=== PATIENT | female | born 1945 | race Caucasian/White ===

== ENCOUNTER → 2016-05-27 | Outpatient (CLI) | payer OTHER ==
[~2016-05-27] MED LIST: DILT-121 PO; HYZ/10015 PO
[2016-05-27 11:09] LABS: BLOOD UREA NITROGEN 15 mg/dl (7-18); BUN/CREATININE RATIO 16.6 (10-20); CALCIUM 9.1 mg/dl (8.5-10.1); CARBON DIOXIDE 28 mmol/L (21-32); CHLORIDE 106 mmol/L (98-107); CREATININE 0.92 mg/dl (0.60-1.20); GLUCOSE 94 mg/dl (70-99); POTASSIUM 3.8 mmol/L (3.5-5.1); SODIUM 142 mmol/L (136-145)
[2016-05-27 11:12] LABS: CHOLESTEROL 205 mg/dl (0-200); CHOLESTEROL/HDL RATIO 2.8; HDL CHOLESTEROL 72 mg/dl; LDL CHOLESTEROL CALCULATED 109 mg/dl; TRIGLYCERIDES 122 mg/dl (0-150); VERY LOW DENSITY LIPOPROT CALC 24 mg/dl
[2016-05-27 11:43] LABS: ESTIMATED AVERAGE GLUCOSE 128 mg/dl; HA1C FLAG Normal (Normal)
--- NOTE | 2016-06-03 08:50 | CODING QUERY MEDICAL NECESSITY ---
SUPPORTING DIAGNOSIS NEEDED A supporting diagnosis is required for the test/procedure performed on this patient in order for us to be reimbursed by the patient's insurance. Please provide a supporting diagnosis for the following test/procedure listed below next to the test name along with your signature. *If there is no additional diagnosis for this patient that would support the following test/procedure please document that below next to the test/procedure. Test(s)/Procedure(s) that require a supporting diagnosis: * GLYCATED HEMOGLOBIN DIAGNOSIS: * DOS: 05/27/16 Provider Signature: Date: Thank you [facility] Once completed, please kindly fax back to [phone] For questions please call [phone]
== END | disposition home or self-care (01) ==
LOC: C.LABBC 08:13
PROVIDERS: ATTEND Family Medicine
DX: I10 Essential (primary) hypertension (principal); E78.00 Pure hypercholesterolemia, unspecified; R73.03 Prediabetes

== ENCOUNTER → 2016-11-14 | Outpatient (CLI) | payer OTHER ==
--- NOTE | 2016-11-14 15:24 | DIAGNOSTIC IMAGING REPORT ---
LEFT HIP UNILATERAL 2 VIEWS CLINICAL HISTORY: Left hip pain. COMPARISON STUDY: None. FINDINGS: No fracture or dislocation within the left hip. The visualized pelvic bones are intact. Soft tissues are within normal limits. Cartilage spaces are maintained for age. IMPRESSION: No fracture or dislocation within the left hip. Electronically signed by: Giovanni Bellamy M.D. 11/14/2016 3:22 PM Dictated Date/Time: 11/14/2016 3:21 PM
--- NOTE | 2016-11-14 15:30 | DIAGNOSTIC IMAGING REPORT ---
L-SPINE MIN 4 VIEWS ROUTINE CLINICAL HISTORY: 71 years-old Female presenting with osteopenia. TECHNIQUE: Frontal, bilateral oblique, and lateral views of the lumbar spine with coned in lateral view of the lumbosacral junction were obtained. COMPARISON: None. FINDINGS: Normal lumbar lordosis. Vertebral body heights maintained. Intervertebral disc height loss at L5-S1 with vacuum disc phenomenon. No evidence of a compression deformity. No radiographic evidence of acute fracture or subluxation. Evaluation of the neural foramina slightly limited due to positioning and mild scoliotic curvature of the lumbar spine. Nonobstructive bowel gas pattern. IMPRESSION: Degenerative changes at L5-S1. No evidence of a compression deformity. Electronically signed by: Akhil Mack M.D. 11/14/2016 3:29 PM Dictated Date/Time: 11/14/2016 3:27 PM
== END | disposition home or self-care (01) ==
LOC: C.RADBC 14:42
PROVIDERS: ATTEND Family Medicine Adult Medicine
DX: M25.552 Pain in left hip (principal); M85.88 Other specified disorders of bone density and structure, other site; M51.37 Other intervertebral disc degeneration, lumbosacral region

== ENCOUNTER 2016-11-25 07:37 | Inpatient (IN) | payer OTHER ==
[~2016-11-25] VITALS: Ht 160 cm; Wt 81.5 kg
[2016-11-25] MEDS ORDERED: ONDANSETRON INJ 2 MG/ML 2 ML VIAL IV STA (08:29)
[2016-11-25] MEDS ORDERED: SODIUM CHLORIDE 0.9% 1000ML 1,000 ML IV STA (08:29)
[2016-11-25 08:42] LABS: BASO % 0.1 %; BASO ABS # 0.01 K/uL (0-0.2); COMPLETE YES; HEMATOCRIT 43.2 % (37-47); IG% 0.3 %; LYMPH % 6.4 %; LYMPH ABS # 1.01 K/uL (1.2-3.4); MEAN CELL VOLUME 81.7 fL (80-100); MEAN CORPUSCULAR HEMOGLOBIN 30.2 pg (25-34); MEAN PLATELET VOLUME 10.3 fL (7.4-10.4); MONO % 3.8 %; NEUT % 89.4 %; PLATELET COUNT 464 K/uL (130-400); RED BLOOD COUNT 5.29 M/uL (4.2-5.4); WHITE BLOOD COUNT 15.81 K/uL (4.8-10.8)
[2016-11-25 08:48] LABS: ALT/SGPT 21 U/L (12-78); BLOOD UREA NITROGEN 27 mg/dl (7-18); BUN/CREATININE RATIO 26.5 (10-20); CALCIUM 10.7 mg/dl (8.5-10.1); CARBON DIOXIDE 23 mmol/L (21-32); CHLORIDE 99 mmol/L (98-107); GLUCOSE 196 mg/dl (70-99); SODIUM 134 mmol/L (136-145)
[2016-11-25 08:51] LABS: ALKALINE PHOSPHATASE 106 U/L (45-117); AST/SGOT 16 U/L (15-37)
[2016-11-25] MEDS ORDERED: DILT-121 PO (09:21)
[2016-11-25] MEDS ORDERED: HYZ/10015 PO (09:21)
--- NOTE | 2016-11-25 09:23 | DIAGNOSTIC IMAGING REPORT ---
CHEST AND ABDOMEN 2 VIEWS HISTORY: Nausea. Vomiting. COMPARISON: None. FINDINGS: Moderate to large hiatus hernia. The lungs are clear. No pleural effusions. No pneumothorax. Multiple dilated loops of small bowel seen throughout the abdomen measuring up to 4.9 cm. These demonstrate small fluid levels. This is consistent with a small bowel obstruction. No pneumoperitoneum. No pneumatosis. Calcifications in the deep pelvis likely represent phleboliths. IMPRESSION: Multiple distended loops of small bowel consistent with a small bowel obstruction. Electronically signed by: Giovanni Bellamy M.D. 11/25/2016 9:21 AM Dictated Date/Time: 11/25/2016 9:15 AM
--- NOTE | 2016-11-25 09:47 | EMERGENCY ROOM VISIT NOTE ---
ED Visit Note First contact with patient: 07:56 I have personally seen and evaluated the patient with the physician mechanic assistant. I agree with the diagnostic/management decisions and have personally been involved in these decisions and agree with the diagnosis.
[2016-11-25 09:57] VITALS: O2SAT 97; Ht 160 cm; Wt 81.5 kg
[2016-11-25] MEDS ORDERED: ACETAMINOPHEN 325 MG TAB PO PRN (10:30)
[2016-11-25] MEDS ORDERED: ONDANSETRON INJ 2 MG/ML 2 ML VIAL IV PRN (10:30)
[2016-11-25] MEDS ORDERED: MAGNESIUM HYDROXIDE SUSP 30 ML UDC PO PRN (10:30)
[2016-11-25] MEDS ORDERED: ALUMINUM/MAGNESIUM/SIMETH (MAALOX MAX) 30 ML UDC PO PRN (10:30)
[2016-11-25] MEDS ORDERED: MoRPHine SULFATE 2 MG/ML CARP IV PRN ×2 (10:30)
--- NOTE | 2016-11-25 11:14 | History and Physical ---
History & Physical Date & Time of Service: Nov 25, 2016 at 10:46 Chief Complaint: Stomach Pain Primary Care Physician: Carrie Pandya MD History of Present Illness Source: patient Ms. Paniagua is a 71 y/o female with PMHx of HTN, HLD, Pre-DM, and Diverticulosis who presents to the ED c/o vomiting since Thursday. Last emesis was this AM but denies N/V on admission. Also reporting a burning sensation from the stomach that extends into the throat. She denies overt abdominal pain. She denies H/O GERD or frequent reflux. She denies ETOH consumption or chronic NSAID use. Last BM was Thursday but reporting it was small and not a normal amount for her but is unable to recall the last normal BM. She denies melena/ hematochezia. She denies passing flatus. In September 2016, she did have one episode of BRBPR and declined colonoscopy at that time when seen by PCP. Last colonoscopy was [address] Cannon which only confirmed diverticulosis. She did attempt to eat yesterday but only had a small piece of toast and a small amount of scrambled eggs. Currently reports have no appetite for food. She has no H/O abdominal surgeries or C-sections. In the ED, she is afebrile. Presence of leukocytosis at 15.81. Abd XR with multiple distended loops of small bowel consistent with SBO. Minimal to no gas is visualized in the cecum/rectum with is concerning for complete obstruction. She is not anemic on labs with H&H 16/43.2. She is hypokalemic at 3.0. She will be admitted to Med/Surg for SBO. Past Medical/Surgical History 1. HTN 2. HLD 3. Pre-DM 4. Diverticulosis 5. S/P Tonsillectomy/Adenoidectomy Family History Myocardial Infarction MOTHER Ulcerative Colitis DAUGHTER Social History Smoking Status: Never Smoker Drug Use: none Marital Status: Housing status: lives with family Multi-Drug Resistant Organisms History of MDRO: No Allergies Coded Allergies: No Known Allergies (Unverified , 11/25/16) Home Medications Scheduled Diltiazem Hcl Ext Rel (Tiazac), 420 MG PO DAILY Hctz/Losartan (Hyzaar 25MG/100MG), 1 TAB PO DAILY Review of Systems Constitutional: No fever, No chills, No weakness, No fatigue ENT: No nasal symptoms, No sore throat, No trouble swallowing Respiratory: No cough, No shortness of breath Cardiovascular: No chest pain, No palpitations Abdomen: + nausea, + vomiting, No pain, No diarrhea, No constipation, No GI bleeding Musculoskeletal: No swelling, No calf pain Genitourinary - Female: No dysuria Hematologic / Lymphatic: No abnormal bleeding/bruising, No clotting problems Integumentary: No rash Physical Exam Vital Signs Date Time Temp Pulse Resp B/P (MAP) Pulse Ox O2 Delivery O2 Flow Rate FiO2 11/25/16 07:50 36.8 92 20 158/89 97 Room Air General Appearance: WD/WN, no apparent distress Head: normocephalic, atraumatic Eyes: sclerae normal ENT: hearing grossly normal Neck: supple, no JVD, trachea midline Respiratory/Chest: lungs clear, normal breath sounds, no respiratory distress, no accessory muscle use Cardiovascular: regular rate, rhythm, no gallop, no murmur Abdomen/GI: non tender, soft, + abnormal bowel sounds (high pitched BS in LUQ; normoactive BS in RUQ but hypoactive in lower quadrants), + distended (tympanic on percussion of upper quadrants) Extremities/Musculoskelatal: no calf tenderness, no pedal edema Neurologic/Psych: alert, oriented x 3 Skin: normal color, warm/dry Diagnostics Laboratory Results Results Past 24 Hours Test 11/25/16 08:00 11/25/16 08:39 Range/Units White Blood Count 15.81 4.8-10.8 K/uL Red Blood Count 5.29 4.2-5.4 M/uL Hemoglobin 16.0 12.0-16.0 g/dL Hematocrit 43.2 37-47 % Mean Corpuscular Volume 81.7 80-100 fL Mean Corpuscular Hemoglobin 30.2 25-34 pg Mean Corpuscular Hemoglobin Concent 37.0 32-36 g/dl Platelet Count 464 130-400 K/uL Mean Platelet Volume 10.3 7.4-10.4 fL Neutrophils (%) (Auto) 89.4 % Lymphocytes (%) (Auto) 6.4 % Monocytes (%) (Auto) 3.8 % Eosinophils (%) (Auto) 0.0 % Basophils (%) (Auto) 0.1 % Neutrophils # (Auto) 14.14 1.4-6.5 K/uL Lymphocytes # (Auto) 1.01 1.2-3.4 K/uL Monocytes # (Auto) 0.60 0.11-0.59 K/uL Eosinophils # (Auto) 0.00 0-0.5 K/uL Basophils # (Auto) 0.01 0-0.2 K/uL RDW Standard Deviation 40.4 36.4-46.3 fL RDW Coefficient of Variation 13.5 11.5-14.5 % Immature Granulocyte % (Auto) 0.3 % Immature Granulocyte # (Auto) 0.05 0.00-0.02 K/uL Sodium Level 134 136-145 mmol/L Potassium Level 3.0 3.5-5.1 mmol/L Chloride Level 99 98-107 mmol/L Carbon Dioxide Level 23 21-32 mmol/L Anion Gap 12.0 3-11 mmol/L Blood Urea Nitrogen 27 7-18 mg/dl Creatinine 1.00 0.60-1.20 mg/dl Estimated GFR () 65.6 Estimated GFR (Non- 56.6 BUN/Creatinine Ratio 26.5 10-20 Random Glucose 196 70-99 mg/dl Calcium Level 10.7 8.5-10.1 mg/dl Total Bilirubin 0.5 0.2-1 mg/dl Direct Bilirubin 0.2 0-0.2 mg/dl Aspartate Amino Transf (AST/SGOT) 16 15-37 U/L Alanine Aminotransferase (ALT/SGPT) 21 12-78 U/L Alkaline Phosphatase 106 45-117 U/L Total Protein 8.2 6.4-8.2 gm/dl Albumin 4.2 3.4-5.0 gm/dl Lipase 126 73-393 U/L Bedside Troponin I < 0.030 0-0.045 ng/ml Diagnostic Radiology CHEST AND ABDOMEN 2 VIEWS FINDINGS: Moderate to large hiatus hernia. The lungs are clear. No pleural effusions. No pneumothorax. Multiple dilated loops of small bowel seen throughout the abdomen measuring up to 4.9 cm. These demonstrate small fluid levels. This is consistent with a small bowel obstruction. No pneumoperitoneum. No pneumatosis. Calcifications in the deep pelvis likely represent phleboliths. IMPRESSION: Multiple distended loops of small bowel consistent with a small bowel obstruction. EKG Normal sinus rhythm Nonspecific ST abnormality Abnormal ECG No previous ECGs available Impression Assessment and Plan Ms. Paniagua is a 71 y/o female with PMHx of HTN, HLD, Pre-DM, and Diverticulosis who presents to the ED c/o vomiting since Thursday. XR supports SBO. Small Bowel Obstruction: Possible Complete Obstruction - XR with multiple loops small bowel - minimal to no gas is seen in cecum/ rectum - concerning for complete obstruction - Keep NPO and repeat XR in AM - may likely need CT Abd/Pelvis with oral contrast but will await clinical course - Colonoscopy (Jun 2012) by Dr. Cannon - confirmed L-sided diverticulosis - per [employer] did have BRBPR without evidence of hemorrhoids but patient ultimately declined colonoscopy at that time - Morphine 1-2 mg IV PRN - Zofran PRN - if vomiting returns would benefit from NGT placement - Consult Gen Surg - appreciate recommendations - Do not suspect immediate surgical intervention but appreciate assistance if clinical course changes Hypokalemia: - K-rider 20 mEq and NSS + 20 mEq at 150 mL/hr - continue to monitor and replete as necessary Urinary Tract Infection: - Ceftriaxone 1 g IV daily - await further identification with UA Cx HTN: - Hold Diltiazem 420 mg daily and Hyzaar 1 tab daily and cover with PRN Hydralazine HLD: - No medications - monitored by PCP Pre-DM: - Monitored by PCP - will monitor only with BMP glucose DVT Prophylaxis: SCDs/Ambulation; will withhold chemical prophylaxis at this time Code Status: FULL RESUSCITATION Disposition: No D/C needs anticipated - Will await medical management of SBO - may need to consider CT Abd/Pelvis - will consult Gen Surg for intervention if warranted - pending clinical course D/ C possible 3-4 days Level of Care Med/Surg Advanced Directives Existing Living Will: No Existing Power of Heel Molder: No Resuscitation Status FULL RESUSCITATION VTE Prophylaxis VTE Risk Assessment Done? Y/N: Yes Risk Level: Moderate Given or contraindicated: T.E.D. Stockings, SCD's
[2016-11-25] MEDS ORDERED: POLYETHYLENE (MIRALAX) 17 GM PACK PO PRN (11:15)
[2016-11-25 12:15] VITALS: BP 174/79; PULSE 76; TEMP 36.8; O2SAT 96
[2016-11-25] MEDS: NSS + 20MEQ KCL 1000ML 1,000 ML IV SCH ×2 (13:03→19:54)
[2016-11-25] MEDS: HydrALAZINE HCL 20 MG/ML VIAL IV. PRN ×2 (13:04→23:52)
[2016-11-25] MEDS: POTASSIUM CHLR 10 MEQ / WTR 10 MEQ in PREMIXED WATER 100 ML IV SCH ×2 (13:04→16:48)
[2016-11-25 13:52] VITALS: BP 154/74
[2016-11-25 14:30] LABS: URINE APPEARANCE TURBID (CLEAR); URINE BILIRUBIN NEG (NEG); URINE COLOR YELLOW; URINE EPITHELIAL CELL AUTO >30 /lpf (0-5); URINE NITRITE NEG (NEG); URINE SPECIFIC GRAVITY 1.024 (1.000-1.030); UROBILINOGEN NEG (NEG)
[2016-11-25 14:37] LABS: MANUAL MICROSCOPIC REQUIRED? NO; REVIEW REQ? NO
--- NOTE | 2016-11-25 14:41 | Medical Consult ---
Consultation Date of Consultation: Nov 25, 2016. Attending Physician: Bishnu Byrd D.O. History of Present Illness 71 y/o female wasn't feeling well 2 mornings ago, by the afternoon she had vomited several times. She continued to have discomfort, has had little by mouth and came in to the ED to be evaluated. Now admitted by medicine for SBO. She feels better this afternoon, last vomited this morning. Last BM was Thursday (the day prior to symptoms beginning). Her had the same food Thursday without any problems. No previous abdominal surgery, injury, or hernias. Not passing any flatus. She had colonoscopy and polypectomy in 2012, ( tubular adenoma of rectum). Past Medical/Surgical History Medical/Surgical history: 1. HTN 2. HLD 3. Pre-DM 4. Diverticulosis 5. S/P Tonsillectomy/Adenoidectomy Family History Myocardial Infarction MOTHER Ulcerative Colitis DAUGHTER Social History Smoking Status: Never Smoker Drug Use: none Marital Status: Allergies Coded Allergies: No Known Allergies (Unverified , 11/25/16) Current Inpatient Medications Current Inpatient Medications Medications (Trade) Dose Ordered Sig/Yovani Route Start Time Stop Time Status Last Admin Dose Admin Acetaminophen (Tylenol Tab) 650 mg Q4H PRN PO 11/25/16 10:30 12/25/16 10:29 Al Hydrox/Mg Hydrox/Simethicone (Maalox Max Susp) 15 ml Q4H PRN PO 11/25/16 10:30 12/25/16 10:29 Magnesium Hydroxide (Milk Of Magnesia Susp) 30 ml Q6H PRN PO 11/25/16 10:30 12/25/16 10:29 Polyethylene (Miralax Powder Packet) 17 gm DAILY PRN PO 11/25/16 11:15 12/25/16 11:14 Ondansetron HCl (Zofran Inj) 4 mg Q6H PRN IV 11/25/16 10:30 12/25/16 10:29 Potassium Chloride 10 meq/ Prmx 100 ml @ 50 mls/hr TODAY@1300,1400 IV 11/25/16 13:00 11/25/16 15:59 11/25/16 13:04 50 MLS/HR Potassium Chloride/Sodium Chloride 1,000 ml @ 150 mls/hr Q6H40M IV 11/25/16 13:00 12/25/16 12:59 11/25/16 13:03 100 MLS/HR Morphine Sulfate (MoRPHine SULFATE INJ) 1 mg Q4H PRN IV 11/25/16 10:30 12/09/16 10:29 Morphine Sulfate (MoRPHine SULFATE INJ) 2 mg Q4H PRN IV 11/25/16 10:30 12/09/16 10:29 Hydralazine HCl (HydrALAZINE INJ) 10 mg Q6H PRN IV. 11/25/16 10:30 12/25/16 10:29 11/25/16 13:04 10 MG Review of Systems Constitutional: No fever, No chills Respiratory: No shortness of breath Cardiovascular: No edema Abdomen: + nausea, + vomiting, No GI bleeding Physical Exam Date Time Temp Pulse Resp B/P (MAP) Pulse Ox O2 Delivery O2 Flow Rate FiO2 11/25/16 13:52 154/74 (100) 11/25/16 13:00 Room Air 11/25/16 12:15 36.8 76 16 174/79 (110) 96 Room Air 11/25/16 11:54 164/97 11/25/16 10:00 150/102 11/25/16 09:57 97 Room Air 11/25/16 07:50 36.8 92 20 158/89 97 Room Air General Appearance: WD/WN, no apparent distress ENT: normal ENT inspection, + pertinent finding (no NG) Respiratory/Chest: lungs clear, normal breath sounds, no respiratory distress, no accessory muscle use Cardiovascular: regular rate, rhythm, no edema, no murmur, normal peripheral pulses Abdomen/GI: soft, + tenderness (mild generalized), + abnormal bowel sounds ( hyperactive), + pertinent finding (no inguinal hernia) Laboratory Results Last 24 Hours Test 11/25/16 08:00 11/25/16 08:39 White Blood Count 15.81 K/uL Red Blood Count 5.29 M/uL Hemoglobin 16.0 g/dL Hematocrit 43.2 % Mean Corpuscular Volume 81.7 fL Mean Corpuscular Hemoglobin 30.2 pg Mean Corpuscular Hemoglobin Concent 37.0 g/dl Platelet Count 464 K/uL Mean Platelet Volume 10.3 fL Neutrophils (%) (Auto) 89.4 % Lymphocytes (%) (Auto) 6.4 % Monocytes (%) (Auto) 3.8 % Eosinophils (%) (Auto) 0.0 % Basophils (%) (Auto) 0.1 % Neutrophils # (Auto) 14.14 K/uL Lymphocytes # (Auto) 1.01 K/uL Monocytes # (Auto) 0.60 K/uL Eosinophils # (Auto) 0.00 K/uL Basophils # (Auto) 0.01 K/uL RDW Standard Deviation 40.4 fL RDW Coefficient of Variation 13.5 % Immature Granulocyte % (Auto) 0.3 % Immature Granulocyte # (Auto) 0.05 K/uL Sodium Level 134 mmol/L Potassium Level 3.0 mmol/L Chloride Level 99 mmol/L Carbon Dioxide Level 23 mmol/L Anion Gap 12.0 mmol/L Blood Urea Nitrogen 27 mg/dl Creatinine 1.00 mg/dl Estimated GFR () 65.6 Estimated GFR (Non- 56.6 BUN/Creatinine Ratio 26.5 Random Glucose 196 mg/dl Calcium Level 10.7 mg/dl Total Bilirubin 0.5 mg/dl Direct Bilirubin 0.2 mg/dl Aspartate Amino Transf (AST/SGOT) 16 U/L Alanine Aminotransferase (ALT/SGPT) 21 U/L Alkaline Phosphatase 106 U/L Total Protein 8.2 gm/dl Albumin 4.2 gm/dl Lipase 126 U/L Hepatitis C Antibody Screen NEG Bedside Troponin I < 0.030 ng/ml CHEST AND ABDOMEN 2 VIEWS HISTORY: Nausea. Vomiting. COMPARISON: None. FINDINGS: Moderate to large hiatus hernia. The lungs are clear. No pleural effusions. No pneumothorax. Multiple dilated loops of small bowel seen throughout the abdomen measuring up to 4.9 cm. These demonstrate small fluid levels. This is consistent with a small bowel obstruction. No pneumoperitoneum. No pneumatosis. Calcifications in the deep pelvis likely represent phleboliths. IMPRESSION: Multiple distended loops of small bowel consistent with a small bowel obstruction. Electronically signed by: Giovanni Bellamy M.D. 11/25/2016 9:21 AM Dictated Date/Time: 11/25/2016 9:15 AM Assessment & Plan SBO She is feeling better, N/V has resolved. OK to hold NG, would place if N/V recurs. HR stable, exam is benign but her obstruction without previous surgery or injury is concerning. Repeat XR in AM, will order CT if not improved. She is getting IV potassium, and I increased her maintenance IV.
[2016-11-25 15:12] VITALS: BP 156/76; PULSE 86; TEMP 36.8; O2SAT 96
--- NOTE | 2016-11-25 16:33 | EMERGENCY ROOM VISIT NOTE ---
ED Visit Note First contact with patient: 07:56 Chief Complaint: My stomach has been burning. History of Present Illness: Ms. Paniagua is a 71 year-old white female ambulates into the ED accompanied by her complaining of diffuse abdominal pain. Historically patient reports she has a history of diverticulosis and GERD. Patient reports 2 days ago she had an gradual onset of epigastric abdominal pain. Since that time the pain has been constant but has waxed and waned in intensity based on her vomiting and dry heaving. The pain is currently described as burning starting in the epigastric area and extending superiorly to the midesophagus level. She rates her discomfort at its worse as 8/10. The pain worsens with vomiting and dry heaving. She has moderate relief when she is not vomiting or dry heaving. She has taken Tums without relief of her discomfort. Associated with her pain she has been nauseated but has not vomited , and she has had a decreased appetite. Patient denies fevers, chills, sweats, skin eruptions, skin color changes, upper respiratory tract symptoms, shortness of breath, chest pain, diarrhea, constipation, rectal bleeding, black/tarry stools, urinary symptoms, hematuria, vaginal bleeding, vaginal discharge, back/flank pain. Review of Systems: As noted above in history of present illness. All body systems were reviewed and found to be negative as noted above. Past Medical History: As previously noted, hypertension, dyslipidemia, prediabetes, status post tonsillectomy and adenoidectomy. Current Medications: Hyzaar, diltiazem. Allergies to Medications: Patient denies. Social History: Patient feels safe in her home environment; she denies alcohol and tobacco use. Physical Examination: Vital Signs: Date Time Temp Pulse Resp B/P (MAP) Pulse Ox O2 Delivery O2 Flow Rate FiO2 11/25/16 10:00 150/102 11/25/16 09:57 97 Room Air 11/25/16 07:50 36.8 92 20 158/89 97 Room Air GENERAL: 71-year-old female in mild to moderate distress due to pain, nontoxic- appearing, afebrile and hemodynamically stable. NEUROLOGICAL: Awake, alert and oriented to person, place and time. Answering questions appropriately and following commands. Normal gait. Good hand eye coordination. SKIN: Warm, dry and pink. No soft tissue eruptions or trauma noted. HEENT: Atraumatic and normocephalic. PERRLA. Sclera white and conjunctiva pink. Oral cavity moist and pink. Pharynx is nonerythematous or edematous. Speech normal. No lymphadenopathy. Trachea midline. No jugular venous distention. BACK: No tenderness over the bony spine. No CVA tenderness. THORAX: Lungs sounds are clear to auscultation and equal bilaterally with symmetrical chest wall. No wheezing, rales or rhonchi. No crepitus, tenderness , subcutaneous air or deformities noted. HEART: Regular rate and rhythm. No gallops, rubs or murmurs are appreciated. ABDOMEN: Slightly distended in the mid epigastrium. Soft with mild tenderness in the epigastric area with left-sided prominence. Decreased bowel sounds in all quadrants. No guarding, rigidity or organomegaly. RECTAL: No external tags or hemorrhoids. Normal rectal tone. Soft stool within the colon. Heme-negative guaiac. EXTREMITIES: Moves all extremities well on command and with purpose. All distal neurovascular statuses are intact and equal bilaterally. ED Course: Patient is assessed as noted above. Patient's medication list was reviewed. Laboratory Testing: Test 11/25/16 08:00 11/25/16 08:39 Range/Units White Blood Count 15.81 4.8-10.8 K/uL Red Blood Count 5.29 4.2-5.4 M/uL Hemoglobin 16.0 12.0-16.0 g/dL Hematocrit 43.2 37-47 % Mean Corpuscular Volume 81.7 80-100 fL Mean Corpuscular Hemoglobin 30.2 25-34 pg Mean Corpuscular Hemoglobin Concent 37.0 32-36 g/dl Platelet Count 464 130-400 K/uL Mean Platelet Volume 10.3 7.4-10.4 fL Neutrophils (%) (Auto) 89.4 % Lymphocytes (%) (Auto) 6.4 % Monocytes (%) (Auto) 3.8 % Eosinophils (%) (Auto) 0.0 % Basophils (%) (Auto) 0.1 % Neutrophils # (Auto) 14.14 1.4-6.5 K/uL Lymphocytes # (Auto) 1.01 1.2-3.4 K/uL Monocytes # (Auto) 0.60 0.11-0.59 K/uL Eosinophils # (Auto) 0.00 0-0.5 K/uL Basophils # (Auto) 0.01 0-0.2 K/uL RDW Standard Deviation 40.4 36.4-46.3 fL RDW Coefficient of Variation 13.5 11.5-14.5 % Immature Granulocyte % (Auto) 0.3 % Immature Granulocyte # (Auto) 0.05 0.00-0.02 K/uL Sodium Level 134 136-145 mmol/L Potassium Level 3.0 3.5-5.1 mmol/L Chloride Level 99 98-107 mmol/L Carbon Dioxide Level 23 21-32 mmol/L Anion Gap 12.0 3-11 mmol/L Blood Urea Nitrogen 27 7-18 mg/dl Creatinine 1.00 0.60-1.20 mg/dl Estimated GFR () 65.6 Estimated GFR (Non- 56.6 BUN/Creatinine Ratio 26.5 10-20 Random Glucose 196 70-99 mg/dl Calcium Level 10.7 8.5-10.1 mg/dl Total Bilirubin 0.5 0.2-1 mg/dl Direct Bilirubin 0.2 0-0.2 mg/dl Aspartate Amino Transf (AST/SGOT) 16 15-37 U/L Alanine Aminotransferase (ALT/SGPT) 21 12-78 U/L Alkaline Phosphatase 106 45-117 U/L Total Protein 8.2 6.4-8.2 gm/dl Albumin 4.2 3.4-5.0 gm/dl Lipase 126 73-393 U/L Hepatitis C Antibody Screen NEG NEG Bedside Troponin I < 0.030 0-0.045 ng/ml Acute abdomen X-Ray Series: Were read by myself and the radiologist showing a normal appearing chest with no signs of infiltrates, effusions or pneumothorax. Normal heart silhouette. Abdominal component shows multiple dilated loops of small bowel consistent with a small bowel obstruction. No pneumoperitoneum. Patient was hydrated with normal saline and received 4 mg of Zofran IV for pain ; patient was offered pain medications and refused. Patient's case was reviewed with Dr. Brown; in apparently assessed the patient we agreed on diagnostic approach, treatment, disposition and plan. Patient's case was consulted with case management and Dr. Welch, hospitalist, for medical observation/admission. Patient was educated about today's findings. Clinical Impression: Acute small bowel obstruction. Decision-Making: Initially my differential diagnosis I considered constipation, bowel obstruction, ileus, pancreatitis, hepatitis, cholecystitis and other causes. Disposition and Plan: Patient be brought in the hospital by the hospitalist; please see their notes and orders for final disposition and plan.
[2016-11-25] MEDS: CEFTRIAXONE SOD INJ 1 GM in DEXTROSE 5% ADD-VANTAGE 50ML 50 ML IV SCH (16:48)
[2016-11-25 22:45] VITALS: BP 175/92; PULSE 82; TEMP 36.8; O2SAT 95
[2016-11-25 23:43] VITALS: BP 168/84; PULSE 82
[2016-11-26 00:23] VITALS: BP 158/74; PULSE 91
[2016-11-26] MEDS: NSS + 20MEQ KCL 1000ML 1,000 ML IV SCH ×4 (02:42→22:28)
[2016-11-26 06:19] LABS: HEMATOCRIT 40.1 % (37-47); MEAN CELL VOLUME 83.4 fL (80-100); MEAN CORPUSCULAR HEMOGLOBIN 29.3 pg (25-34); MEAN CORPUSCULAR HGB CONC 35.2 g/dl (32-36); MEAN PLATELET VOLUME 9.8 fL (7.4-10.4); PLATELET COUNT 339 K/uL (130-400); RED BLOOD COUNT 4.81 M/uL (4.2-5.4); WHITE BLOOD COUNT 13.36 K/uL (4.8-10.8)
[2016-11-26 06:59] LABS: CALCIUM 8.8 mg/dl (8.5-10.1); CREATININE 0.58 mg/dl (0.60-1.20); POTASSIUM 3.2 mmol/L (3.5-5.1)
--- NOTE | 2016-11-26 07:21 | Surgery Progress Note ---
Surgery Progress Note Date of Service Nov 26, 2016. Subjective no real improvement overnight but no N/V, no flatus Objective Vital Signs: Date Time Temp Pulse Resp B/P (MAP) Pulse Ox O2 Delivery O2 Flow Rate FiO2 11/26/16 00:23 91 158/74 (102) 11/25/16 23:43 82 168/84 (112) 11/25/16 23:10 Room Air 11/25/16 22:45 36.8 82 18 175/92 (119) 95 Room Air 11/25/16 19:20 Room Air 11/25/16 16:30 Room Air 11/25/16 15:12 36.8 86 18 156/76 (102) 96 Room Air 11/25/16 13:52 154/74 (100) 11/25/16 13:00 Room Air 11/25/16 12:15 36.8 76 16 174/79 (110) 96 Room Air 11/25/16 11:54 164/97 11/25/16 10:00 150/102 11/25/16 09:57 97 Room Air 11/25/16 07:50 36.8 92 20 158/89 97 Room Air Abdomen: soft, + distended (slighlty), + tenderness (less) Laboratory Results: Results Past 24 Hours Test 11/25/16 08:00 11/25/16 08:39 11/25/16 14:10 11/26/16 05:57 Range/Units White Blood Count 15.81 13.36 4.8-10.8 K/uL Red Blood Count 5.29 4.81 4.2-5.4 M/uL Hemoglobin 16.0 14.1 12.0-16.0 g/dL Hematocrit 43.2 40.1 37-47 % Mean Corpuscular Volume 81.7 83.4 80-100 fL Mean Corpuscular Hemoglobin 30.2 29.3 25-34 pg Mean Corpuscular Hemoglobin Concent 37.0 35.2 32-36 g/dl Platelet Count 464 339 130-400 K/uL Mean Platelet Volume 10.3 9.8 7.4-10.4 fL Neutrophils (%) (Auto) 89.4 % Lymphocytes (%) (Auto) 6.4 % Monocytes (%) (Auto) 3.8 % Eosinophils (%) (Auto) 0.0 % Basophils (%) (Auto) 0.1 % Neutrophils # (Auto) 14.14 1.4-6.5 K/uL Lymphocytes # (Auto) 1.01 1.2-3.4 K/uL Monocytes # (Auto) 0.60 0.11-0.59 K/uL Eosinophils # (Auto) 0.00 0-0.5 K/uL Basophils # (Auto) 0.01 0-0.2 K/uL RDW Standard Deviation 40.4 42.3 36.4-46.3 fL RDW Coefficient of Variation 13.5 13.9 11.5-14.5 % Immature Granulocyte % (Auto) 0.3 % Immature Granulocyte # (Auto) 0.05 0.00-0.02 K/uL Sodium Level 134 141 136-145 mmol/L Potassium Level 3.0 3.2 3.5-5.1 mmol/L Chloride Level 99 111 98-107 mmol/L Carbon Dioxide Level 23 24 21-32 mmol/L Anion Gap 12.0 6.0 3-11 mmol/L Blood Urea Nitrogen 27 23 7-18 mg/dl Creatinine 1.00 0.58 0.60-1.20 mg/dl Estimated GFR () 65.6 107.5 Estimated GFR (Non- 56.6 92.7 BUN/Creatinine Ratio 26.5 40.0 10-20 Random Glucose 196 146 70-99 mg/dl Calcium Level 10.7 8.8 8.5-10.1 mg/dl Total Bilirubin 0.5 0.2-1 mg/dl Direct Bilirubin 0.2 0-0.2 mg/dl Aspartate Amino Transf (AST/SGOT) 16 15-37 U/L Alanine Aminotransferase (ALT/SGPT) 21 12-78 U/L Alkaline Phosphatase 106 45-117 U/L Total Protein 8.2 6.4-8.2 gm/dl Albumin 4.2 3.4-5.0 gm/dl Lipase 126 73-393 U/L Hepatitis C Antibody Screen NEG NEG Bedside Troponin I < 0.030 0-0.045 ng/ml Urine Color YELLOW Urine Appearance TURBID CLEAR Urine pH 6.0 4.5-7.5 Urine Specific [place] 1.024 1.000-1.030 Urine Protein 1+ NEG Urine Glucose (UA) TRACE NEG Urine Ketones TRACE NEG Urine Occult Blood 2+ NEG Urine Nitrite NEG NEG Urine Bilirubin NEG NEG Urine Urobilinogen NEG NEG Urine Leukocyte Esterase LARGE NEG Urine WBC (Auto) >30 0-5 /hpf Urine RBC (Auto) >30 0-4 /hpf Urine Hyaline Casts (Auto) 5-10 0-5 /lpf Urine Epithelial Cells (Auto) >30 0-5 /lpf Urine Bacteria (Auto) 4+ NEG Est Creatinine Clear Calc Drug Dose 86.8 ml/min Magnesium Level 2.0 1.8-2.4 mg/dl Assessment & Plan SBO AM XR pending, will likely order CT unless there is significant improvement in XR
[2016-11-26 07:28] VITALS: BP 173/90; PULSE 74; TEMP 36.7; O2SAT 94
[2016-11-26] MEDS: HydrALAZINE HCL 20 MG/ML VIAL IV. PRN ×3 (07:37→23:56)
[2016-11-26] MEDS ORDERED: POTASSIUM CHLR 20 MEQ / WTR 20 MEQ in PREMIXED WATER 100 ML IV STA (08:21)
[2016-11-26] MEDS: POTASSIUM CHLR 10MEQ / WTR IV SCH ×2 (08:37→10:17)
[2016-11-26] MEDS: RANITIDINE IV 50 MG in DEXTROSE 5% 100ML 100 ML IV SCH ×2 (08:44→17:23)
[2016-11-26 09:00] VITALS: BP 156/78
--- NOTE | 2016-11-26 09:56 | DIAGNOSTIC IMAGING REPORT ---
ABDOMEN 2 VIEWS CLINICAL HISTORY: SBO - assess improvement obstruction COMPARISON STUDY: 11/25/2016 FINDINGS: Unchanging findings of mid to distal small bowel obstruction. Moderate small bowel distention unaltered from the prior study. Small amount of colonic material remains present. Several air-fluid levels are noted. No evidence for free air. IMPRESSION: Small bowel obstruction. No change radiographically from the prior study. The above report was generated using voice recognition software. It may contain grammatical, syntax or spelling errors. Electronically signed by: Matheus Langley M.D. 11/26/2016 9:54 AM Dictated Date/Time: 11/26/2016 9:53 AM
--- NOTE | 2016-11-26 11:16 | Hospitalist Progress Note ---
Hospitalist Progress Note Date of Service Nov 26, 2016. Subjective Pt evaluation today including: conversation w/ patient, conversation w/ family , physical exam, chart review, lab review, review of studies, review of inpatient medication list Patient seen and evaluated. No acute events overnight. Continues with no flatus and no BM. No further nausea/vomiting. No abdominal pain present. XR without change in SBO findings. Will go forward with CT Abd/Pelvis. Did discuss with patient about possible causes including concern for a mass vs hardened stool. Constitutional: No fever, No chills Respiratory: No shortness of breath Cardiovascular: No chest pain Abdomen: + constipation, No pain, No nausea, No vomiting, No diarrhea Musculoskeletal: No swelling, No calf pain Female : No dysuria, No urinary frequency, No hematuria Heme: No abnormal bleeding/bruising Medications Current Inpatient Medications Medications (Trade) Dose Ordered Sig/Yovani Route Start Time Stop Time Status Last Admin Dose Admin Acetaminophen (Tylenol Tab) 650 mg Q4H PRN PO 11/25/16 10:30 12/25/16 10:29 Al Hydrox/Mg Hydrox/Simethicone (Maalox Max Susp) 15 ml Q4H PRN PO 11/25/16 10:30 12/25/16 10:29 Magnesium Hydroxide (Milk Of Magnesia Susp) 30 ml Q6H PRN PO 11/25/16 10:30 12/25/16 10:29 Polyethylene (Miralax Powder Packet) 17 gm DAILY PRN PO 11/25/16 11:15 12/25/16 11:14 Ondansetron HCl (Zofran Inj) 4 mg Q6H PRN IV 11/25/16 10:30 12/25/16 10:29 Potassium Chloride/Sodium Chloride 1,000 ml @ 150 mls/hr Q6H40M IV 11/25/16 13:00 12/25/16 12:59 11/26/16 08:43 150 MLS/HR Morphine Sulfate (MoRPHine SULFATE INJ) 1 mg Q4H PRN IV 11/25/16 10:30 12/09/16 10:29 Morphine Sulfate (MoRPHine SULFATE INJ) 2 mg Q4H PRN IV 11/25/16 10:30 12/09/16 10:29 Hydralazine HCl (HydrALAZINE INJ) 10 mg Q6H PRN IV. 11/25/16 10:30 12/25/16 10:29 11/26/16 07:37 10 MG Ceftriaxone Sodium 1 gm/ Dextrose 50 ml @ 100 mls/hr Q24H IV 11/25/16 16:00 11/30/16 15:59 11/25/16 16:48 100 MLS/HR Ranitidine HCl 50 mg/Dextrose 102 ml @ 200 mls/hr Q8H IV 11/26/16 09:00 12/26/16 08:59 11/26/16 08:44 200 MLS/HR Objective Vital Signs Date Time Temp Pulse Resp B/P (MAP) Pulse Ox O2 Delivery O2 Flow Rate FiO2 11/26/16 09:00 156/78 (104) 11/26/16 07:50 Room Air 11/26/16 07:28 36.7 74 20 173/90 (117) 94 Room Air 11/26/16 00:23 91 158/74 (102) 11/25/16 23:43 82 168/84 (112) 11/25/16 23:10 Room Air 11/25/16 22:45 36.8 82 18 175/92 (119) 95 Room Air 11/25/16 19:20 Room Air 11/25/16 16:30 Room Air 11/25/16 15:12 36.8 86 18 156/76 (102) 96 Room Air 11/25/16 13:52 154/74 (100) 11/25/16 13:00 Room Air 11/25/16 12:15 36.8 76 16 174/79 (110) 96 Room Air 11/25/16 11:54 164/97 Physical Exam General Appearance: WD/WN, no apparent distress Eyes: sclerae normal ENT: hearing grossly normal Neck: supple, no JVD, trachea midline Respiratory/Chest: lungs clear, normal breath sounds, no respiratory distress, no accessory muscle use Cardiovascular: regular rate, rhythm, no gallop, no murmur Abdomen: normal bowel sounds, non tender, soft, + distended Extremities: no pedal edema, no calf tenderness Neurologic/Psychiatric: alert, oriented x 3 Skin: normal color, warm/dry Laboratory Results Last 24 Hours Test 11/25/16 14:10 11/26/16 05:57 Urine Color YELLOW Urine Appearance TURBID Urine pH 6.0 Urine Specific [place] 1.024 Urine Protein 1+ Urine Glucose (UA) TRACE Urine Ketones TRACE Urine Occult Blood 2+ Urine Nitrite NEG Urine Bilirubin NEG Urine Urobilinogen NEG Urine Leukocyte Esterase LARGE Urine WBC (Auto) >30 /hpf Urine RBC (Auto) >30 /hpf Urine Hyaline Casts (Auto) 5-10 /lpf Urine Epithelial Cells (Auto) >30 /lpf Urine Bacteria (Auto) 4+ White Blood Count 13.36 K/uL Red Blood Count 4.81 M/uL Hemoglobin 14.1 g/dL Hematocrit 40.1 % Mean Corpuscular Volume 83.4 fL Mean Corpuscular Hemoglobin 29.3 pg Mean Corpuscular Hemoglobin Concent 35.2 g/dl RDW Standard Deviation 42.3 fL RDW Coefficient of Variation 13.9 % Platelet Count 339 K/uL Mean Platelet Volume 9.8 fL Sodium Level 141 mmol/L Potassium Level 3.2 mmol/L Chloride Level 111 mmol/L Carbon Dioxide Level 24 mmol/L Anion Gap 6.0 mmol/L Blood Urea Nitrogen 23 mg/dl Creatinine 0.58 mg/dl Est Creatinine Clear Calc Drug Dose 86.8 ml/min Estimated GFR () 107.5 Estimated GFR (Non- 92.7 BUN/Creatinine Ratio 40.0 Random Glucose 146 mg/dl Calcium Level 8.8 mg/dl Magnesium Level 2.0 mg/dl Assessment and Plan Ms. Paniagua is a 71 y/o female with PMHx of HTN, HLD, Pre-DM, and Diverticulosis who presents to the ED c/o vomiting since Thursday. XR supports SBO. Small Bowel Obstruction: Possible Complete Obstruction - Keep NPO - Repeat XR without change and will obtain CT Abd/Pelvis w/ IV and oral contrast - Morphine 1-2 mg IV PRN - Zofran PRN - if vomiting returns would benefit from NGT placement - Consult Gen Surg - appreciate recommendations - await further imaging Hypokalemia: IMPROVING - Monitor and replete as necessary with IVF Urinary Tract Infection: Gram Negative - Ceftriaxone 1 g IV daily - await further identification with UA Cx HTN: - Hold Diltiazem 420 mg daily and Hyzaar 1 tab daily and cover with PRN Hydralazine HLD: - No medications - monitored by PCP Pre-DM: - Monitored by PCP - will monitor only with BMP glucose DVT Prophylaxis: SCDs/Ambulation; will withhold chemical prophylaxis at this time Code Status: FULL RESUSCITATION Disposition: No D/C needs anticipated - Will await medical management of SBO - anticipated stay of 3-4 days Continued [facility] stay due to: multiple IV medications needed Discharge planning: home
[2016-11-26] MEDS ORDERED: OPTIRAY 320 IV PRN (13:30)
--- NOTE | 2016-11-26 13:56 | DIAGNOSTIC IMAGING REPORT ---
CT SCAN OF THE ABDOMEN AND PELVIS WITH IV CONTRAST CLINICAL HISTORY: Small bowel obstruction. COMPARISON STUDY: Abdominal radiographs dated 11/26/2016. TECHNIQUE: Following the IV administration of 94 cc of Optiray 320, CT scan of the abdomen and pelvis is performed from the lung bases to the proximal femora. Images are reviewed in the axial, sagittal, and coronal planes. IV contrast was administered without complication. Automated dose control exposure was utilized. A dose lowering technique was utilized adhering to the principles of ALARA. CT DOSE: 506.78 mGy.cm FINDINGS: Lung bases: The heart is normal in size and without pericardial effusion. There are coronary artery calcifications. There is a fat-containing Bochdalek hernia at the right lung base. There is left basilar atelectasis secondary to a large hiatal hernia. Liver: The contrast-enhanced liver is normal in size, contour, and attenuation. There is no intrahepatic biliary ductal dilatation. The hepatic veins and portal veins are patent. A 10 mm cyst is seen in the inferior right lobe. Gallbladder: Unremarkable. Spleen: Normal in size and attenuation. Pancreas: Unremarkable. Adrenal glands: Unremarkable. Kidneys: The contrast enhanced kidneys demonstrate cortical atrophy and are without hydronephrosis. The kidneys enhance symmetrically. A 2.1 cm cyst is present in the left lower pole. Additional subcentimeter cortical hypodensities likely represent cysts but are too small for definitive characterization. Abdominal vasculature: The abdominal aorta is normal in course and caliber noting mild atherosclerotic calcification. Stomach and bowel: There is a moderate to large hiatal hernia. Approximately one third of the stomach is located in the thoracic cavity. The duodenum is normal in configuration. 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 The stomach, duodenum, and proximal small bowel are distended and fluid-filled. Small bowel loops measure up to 4.4 cm. There is a complex transition point identified in the right lower quadrant on axial image #288 involving the distal jejunum/proximal ileum, and the possibility of 2 adjacent transition point is not excluded. The appearance is consistent with a high-grade small bowel obstruction. The distal small bowel and colon are decompressed. There is trace interloop fluid. No focally thick walled bowel loops are identified. No pneumatosis intestinalis or portal venous gas is seen. There is advanced sigmoid diverticulosis without CT evidence of acute diverticulitis. Mild diverticular disease is seen throughout the remainder of the colon. The appendix is well-visualized and normal. Peritoneum: There is trace perisplenic ascites as well as trace fluid in the pelvis. No intraperitoneal free air is seen. Lymphadenopathy: None. Pelvic viscera: The bladder is decompressed and grossly unremarkable. The uterus and adnexa are normal as visualized. Skeletal structures: The skeletal structures are osteopenic. There is mild lumbosacral spondylosis and scoliosis. There is a large disc herniation causing severe central canal stenosis at L4-L5. Sclerotic change is noted in the sacroiliac joints. No lytic or blastic lesions are seen. IMPRESSION: 1. Findings are consistent with a high-grade small bowel obstruction. A complex appearing transition point is identified in the right lower quadrant involving the distal jejunum/proximal ileum, with the possibility of 2 adjacent transition point is not excluded. A closed loop type obstruction is not excluded. Surgical consultation is advised. 2. There is trace interloop fluid and a small volume of abdominopelvic ascites. No intraperitoneal free air is seen. No focally thick walled bowel loops are identified. There is no pneumatosis intestinalis or portal venous gas. 3. Moderate to large hiatal hernia. 4. Advanced sigmoid diverticulosis without CT evidence of acute diverticulitis. 5. There is a large disc herniation at L4-L5 causing severe central canal stenosis. 6. Additional findings as above. Electronically signed by: Adriel Martines M.D. 11/26/2016 1:55 PM Dictated Date/Time: 11/26/2016 1:40 PM
[2016-11-26] MEDS ORDERED: LORAZEPAM INJ 0.5 MG in SYRINGE 0.75 ML IV PRN (14:30)
[2016-11-26 14:50] VITALS: BP 178/91; PULSE 82; TEMP 36.4; O2SAT 95
[2016-11-26] MEDS: CEFTRIAXONE SOD INJ 1 GM in DEXTROSE 5% ADD-VANTAGE 50ML 50 ML IV SCH (15:43)
[2016-11-26 15:50] VITALS: O2SAT 95
[2016-11-26 23:03] VITALS: BP 165/77; PULSE 82; TEMP 36.9; O2SAT 95
[2016-11-27] VITALS (9 sets, daily range): BP systolic 132–167; BP diastolic 75–85; PULSE 66–84; TEMP 36.3–36.9; O2SAT 93–96
[2016-11-27] MEDS: RANITIDINE IV 50 MG in DEXTROSE 5% 100ML 100 ML IV SCH ×3 (00:59→17:05)
[2016-11-27] MEDS: NSS + 20MEQ KCL 1000ML 1,000 ML IV SCH ×3 (05:23→23:32)
[2016-11-27 05:53] LABS: HEMATOCRIT 37.7 % (37-47); MEAN CELL VOLUME 84.3 fL (80-100); MEAN CORPUSCULAR HEMOGLOBIN 28.6 pg (25-34); MEAN PLATELET VOLUME 9.7 fL (7.4-10.4); PLATELET COUNT 313 K/uL (130-400); RED BLOOD COUNT 4.47 M/uL (4.2-5.4)
[2016-11-27 06:29] LABS: BUN/CREATININE RATIO 32.6 (10-20); CALCIUM 8.4 mg/dl (8.5-10.1); CREATININE 0.6 mg/dl (0.60-1.20); POTASSIUM 3.6 mmol/L (3.5-5.1)
--- NOTE | 2016-11-27 08:04 | Surgery Progress Note ---
Surgery Progress Note Date of Service Nov 27, 2016. Subjective + flatus feeling better with NG Objective Vital Signs: Date Time Temp Pulse Resp B/P (MAP) Pulse Ox O2 Delivery O2 Flow Rate FiO2 11/27/16 07:29 36.9 84 20 167/83 (111) 94 Room Air 11/27/16 01:01 132/75 (94) 11/27/16 00:15 Room Air 11/26/16 23:03 36.9 82 16 165/77 (106) 95 Room Air 11/26/16 15:50 95 Room Air 11/26/16 14:50 36.4 82 16 178/91 (120) 95 Room Air 11/26/16 09:00 156/78 (104) Physical Exam: nasogastric drainage (1400/500) Abdomen: soft, + distended (less) Laboratory Results: Results Past 24 Hours Test 11/26/16 14:35 11/27/16 05:29 Range/Units Lactic Acid Level 1.4 0.4-2.0 mmol/L White Blood Count 7.00 4.8-10.8 K/uL Red Blood Count 4.47 4.2-5.4 M/uL Hemoglobin 12.8 12.0-16.0 g/dL Hematocrit 37.7 37-47 % Mean Corpuscular Volume 84.3 80-100 fL Mean Corpuscular Hemoglobin 28.6 25-34 pg Mean Corpuscular Hemoglobin Concent 34.0 32-36 g/dl RDW Standard Deviation 44.4 36.4-46.3 fL RDW Coefficient of Variation 14.3 11.5-14.5 % Platelet Count 313 130-400 K/uL Mean Platelet Volume 9.7 7.4-10.4 fL Sodium Level 143 136-145 mmol/L Potassium Level 3.6 3.5-5.1 mmol/L Chloride Level 115 98-107 mmol/L Carbon Dioxide Level 21 21-32 mmol/L Anion Gap 7.0 3-11 mmol/L Blood Urea Nitrogen 20 7-18 mg/dl Creatinine 0.60 0.60-1.20 mg/dl Est Creatinine Clear Calc Drug Dose 84.0 ml/min Estimated GFR () 106.3 Estimated GFR (Non- 91.7 BUN/Creatinine Ratio 32.6 10-20 Random Glucose 105 70-99 mg/dl Calcium Level 8.4 8.5-10.1 mg/dl Magnesium Level 2.0 1.8-2.4 mg/dl Assessment & Plan SBO CT with transition RLQ but now passing flatus, will check KUB fair amount of NG output overnight, tentatively plan for OR this afternoon but will await XR
[2016-11-27] MEDS: HydrALAZINE HCL 20 MG/ML VIAL IV. PRN (08:09)
--- NOTE | 2016-11-27 09:21 | DIAGNOSTIC IMAGING REPORT ---
ABDOMEN 2 VIEWS HISTORY: 71 years-old Female SBO small bowel obstruction. Follow-up exam. COMPARISON: CT abdomen and pelvis 11/26/2016, abdominal radiograph 11/26/2016 TECHNIQUE: Upright and supine views of the abdomen. FINDINGS: Enteric tube has been placed which terminates just to the right of midline in the upper abdomen, likely in the mid gastric lumen. Multiple dilated loops of small bowel are again seen measuring up to proximally 5.1 cm transversely. There are associated air-fluid levels. The degree of bowel distention has slightly decreased from comparison. There is no pneumoperitoneum on the upright projection. No pneumatosis. Negative for urolithiasis or fracture. There is convex left curvature of the lumbar spine. IMPRESSION: 1. Persistent yet mildly decreased small bowel distention without pneumoperitoneum compatible with ongoing obstruction. 2. Enteric tube terminates in the region of the mid gastric lumen. The above report was generated using voice recognition software. It may contain grammatical, syntax or spelling errors. Electronically signed by: Agustin Gonzalez M.D. 11/27/2016 9:19 AM Dictated Date/Time: 11/27/2016 9:17 AM
--- NOTE | 2016-11-27 10:10 | History & Physical Bridge Note ---
H&P Re-Evaluation Bridge Note: I have examined the patient, reviewed the History & Physical and in the interval since the performance of the History & Physical I have noted the following changes of clinical significance: No changes noted discussed with DR Alicia and pt seen and examined at bedside, persistent small bowel distention, no previous surgery no ing or fem hernia abd soft no loc tenderness will plan lap possible open bpossible bowel resection
[2016-11-27] MEDS ORDERED: ROCURONIUM BROMIDE 10 MG/ML 5 ML VIAL IV ONE (10:12)
[2016-11-27] MEDS ORDERED: PROPOFOL IV EMULSION 10 MG/ML 20 ML VIAL IV ONE (10:12)
[2016-11-27] MEDS ORDERED: LIDOCAINE 2% 20 MG/ML 5ML SYR ONE (10:12)
[2016-11-27] MEDS ORDERED: MIDAZOLAM HCL 1 MG/ML 2ML VIAL ONE (10:12)
[2016-11-27] MEDS ORDERED: FENTANYL CITRATE INJ 50 MCG/1 ML 2 ML VIAL ONE ×3 (10:12→11:17)
[2016-11-27] MEDS ORDERED: DEXAMETHASONE SOD INJ 4 MG/ML VIAL ONE (10:13)
[2016-11-27] MEDS ORDERED: NEOSTIGMINE METHYLSULFATE 5 MG/5 ML SYR ONE ×2 (10:13→11:27)
[2016-11-27] MEDS ORDERED: ONDANSETRON INJ 2 MG/ML 2 ML VIAL ONE (10:13)
[2016-11-27] MEDS ORDERED: GLYCOPYRROLATE INJ 0.2 MG/ML VIAL ONE ×2 (10:13→11:27)
[2016-11-27] MEDS ORDERED: NALOXONE HCL 0.4 MG/1 ML VIAL/CARP IV PRN (11:15)
[2016-11-27] MEDS ORDERED: PHENYLEPHRINE 100MCG/ML 5ML SYR IV PRN (11:15)
[2016-11-27] MEDS ORDERED: LABETALOL HCL IV 5 MG/ML 20ML IV PRN (11:15)
[2016-11-27] MEDS ORDERED: FLUMAZENIL 0.1 MG/1 ML 10 ML VIAL IV PRN (11:15)
[2016-11-27] MEDS ORDERED: MoRPHine SULFATE 4 MG/ML 1 ML CARP\\VIAL IV PRN (11:15)
[2016-11-27] MEDS ORDERED: MEPERIDINE HCL 25 MG/ML CARP IV PRN (11:15)
[2016-11-27] MEDS ORDERED: EpHEDrine SULFATE INJ 50 MG/ML AMP IV PRN (11:15)
[2016-11-27] MEDS ORDERED: ATROPINE SULFATE 0.1 MG/ML 5ML SYR IV PRN (11:15)
[2016-11-27] MEDS ORDERED: HYDROmorphone INJ 1 MG/ML SYR IV PRN (11:15)
[2016-11-27] MEDS ORDERED: ONDANSETRON INJ 2 MG/ML 2 ML VIAL IV PRN (11:15)
--- NOTE | 2016-11-27 12:39 | OPERATIVE REPORT ---
DATE OF OPERATION: 11/27/2016 PREOPERATIVE DIAGNOSIS: Small-bowel obstruction. POSTOPERATIVE DIAGNOSIS: Same secondary to adhesive band. PROCEDURE: Exploratory lap, lysis of adhesive band, biopsy of omental tissue. SURGEON: Dr. Ludwig. CLASSIFICATION INSPECTOR: Pierre Rebolledo PA-C. SUMMARY: The patient was brought into the operating room theater. The abdomen was prepped with Betadine solution and properly draped. We made a small incision above and below the umbilicus approximately 2 inches long, sufficient enough to enter the peritoneal cavity. At this point, we were met with some clear fluid, nonpurulent, the small bowel was dilated as we could see. We enlarged the incision sufficiently enough, then we followed the dilated bowel. As we were taking it out of the abdominal wall we could identify there was 1 adhesive band near complete pleat shut off of the small bowel and definite opal as a transition point. As we were pulling the bowel out actually the transition band came off on its own. We at this point, had no idea where this band was coming from. She had had no previous surgery, but we enlarged the incision to make completely sure there was no other pathology accounting for this. We ran it from the ligament of Treitz all the way to the cecum. Other than that one transition point there was no other pathology. There was no Meckel's. The appendix was retrocecal, almost fibrinous obliterated. There was 1 small sclerosal separation of bowel that was closed just minimally reinforced with 3-0 silk suture x2. We palpated the omentum placed the NG tube in proper position. As we looked at the omentum itself there was one area almost 2 specks of almost cyanotic tissue on the edge of the omentum, almost reminiscent of an endometrial implant. We took this out as a biopsy only because I am suspicious possibly that this could have been the cause of the obstruction. We palpated the uterus which was very small and atrophic, there were no ovarian pathology. The abdomen was then closed using a #1 PDS [id number] interrupted, 2-0 Dexon subcutaneously, kacy for skin edges. Dressing was applied. The procedure was tolerated well. Estimated blood loss approximately 5 mL. The patient was taken to recovery room in good condition. I attest to the content of the Intraoperative Record and any orders documented therein. Any exception s are noted below.
--- NOTE | 2016-11-27 13:08 | Hospitalist Progress Note ---
Hospitalist Progress Note Date of Service Nov 27, 2016. Subjective Pt evaluation today including: conversation w/ patient, physical exam, chart review, lab review, review of studies, conversation w/ supervisor home energy consultant (Anesthesia), review of inpatient medication list Patient seen and evaluated. Paged from PACU for runs of PVCs with HR in 60-90s. Patient currently in NSR in 60s. Was having short 4-5 beat runs but also had longer 10-15 beat runs. Remains asymptomatic during these episodes Patient is drowsy but answers questions. States is having abdominal pain but no CP or palpitations. Will obtain stat EKG, BMP, Mag, and troponin. EKG reviewed with NSR without ischemic changes and unchanged from previous EKG Vital signs remain stable. She is on Oxymask after anesthesia with adequate oxygenation. No respiratory distress. She will be transferred to telemetry after D/C from PACU. Update family and escorted him to new room. Constitutional: No fever, No chills Respiratory: No shortness of breath Cardiovascular: No chest pain, No palpitations Abdomen: + pain, No nausea, No vomiting Medications Current Inpatient Medications Medications (Trade) Dose Ordered Sig/Yovani Route Start Time Stop Time Status Last Admin Dose Admin Al Hydrox/Mg Hydrox/Simethicone (Maalox Max Susp) 15 ml Q4H PRN PO 11/25/16 10:30 12/25/16 10:29 Magnesium Hydroxide (Milk Of Magnesia Susp) 30 ml Q6H PRN PO 11/25/16 10:30 12/25/16 10:29 Polyethylene (Miralax Powder Packet) 17 gm DAILY PRN PO 11/25/16 11:15 12/25/16 11:14 Ondansetron HCl (Zofran Inj) 4 mg Q6H PRN IV 11/25/16 10:30 12/25/16 10:29 11/26/16 12:34 4 MG Potassium Chloride/Sodium Chloride 1,000 ml @ 150 mls/hr Q6H40M IV 11/25/16 13:00 12/25/16 12:59 11/27/16 05:23 150 MLS/HR Hydralazine HCl (HydrALAZINE INJ) 10 mg Q6H PRN IV. 11/25/16 10:30 12/25/16 10:29 11/27/16 08:09 10 MG Ceftriaxone Sodium 1 gm/ Dextrose 50 ml @ 100 mls/hr Q24H IV 11/25/16 16:00 11/30/16 15:59 11/26/16 15:43 100 MLS/HR Ranitidine HCl 50 mg/Dextrose 102 ml @ 200 mls/hr Q8H IV 11/26/16 09:00 12/26/16 08:59 11/27/16 09:40 200 MLS/HR Ioversol (Optiray 320) 100 ml UD PRN IV 11/26/16 13:30 11/30/16 13:29 Lorazepam 0.5 mg/ Syringe 1 ml @ 0.5 mls/min Q4H PRN IV 11/26/16 14:30 12/26/16 14:29 11/26/16 16:35 0.5 MLS/MIN Hydromorphone HCl (Dilaudid Inj) 0.5 mg Q5M PRN IV 11/27/16 11:15 11/27/16 16:00 Morphine Sulfate (MoRPHine SULFATE INJ) 4 mg Q10M PRN IV 11/27/16 11:15 11/27/16 16:00 Naloxone HCl (Narcan Inj) 0.2 mg Q2M PRN IV 11/27/16 11:15 11/27/16 16:00 Flumazenil (Romazicon Inj) 0.2 mg Q2M PRN IV 11/27/16 11:15 11/27/16 16:00 Ondansetron HCl (Zofran Inj) 4 mg ONE PRN IV 11/27/16 11:15 11/27/16 16:00 Labetalol HCl (Normodyne IV) 5 mg Q5M PRN IV 11/27/16 11:15 11/27/16 16:00 Ephedrine Sulfate (EpHEDrine SULFATE INJ) 5 mg Q5M PRN IV 11/27/16 11:15 11/27/16 16:00 Atropine Sulfate (Atropine Sulfate 0.1MG/Ml Inj) 0.5 mg Q1M PRN IV 11/27/16 11:15 11/27/16 16:00 Phenylephrine HCl (Kameron-Synephrine 500MCG/5ML Syr) 100 mcg Q5M PRN IV 11/27/16 11:15 11/27/16 16:00 Meperidine HCl (Demerol Inj) 25 mg Q10M PRN IV 11/27/16 11:15 11/27/16 16:00 Morphine Sulfate (MoRPHine SULFATE INJ) 4 mg Q1H PRN IV 11/27/16 12:00 12/11/16 11:59 Acetaminophen 1000 mg/Empty Bag 100 ml @ 400 mls/hr Q8H IV 11/27/16 16:00 11/28/16 08:14 Objective Vital Signs Date Time Temp Pulse Resp B/P (MAP) Pulse Ox O2 Delivery O2 Flow Rate FiO2 11/27/16 12:45 63 16 152/77 94 Oxymask 10 11/27/16 12:35 67 16 152/77 95 Oxymask 10 11/27/16 12:25 67 16 155/76 94 Oxymask 15 11/27/16 12:15 67 16 129/85 94 Oxymask 15 11/27/16 12:09 37.1 71 16 142/72 93 Oxymask 15 11/27/16 10:18 36.6 88 18 154/83 (106) 97 Room Air 11/27/16 07:30 Room Air 11/27/16 07:29 36.9 84 20 167/83 (111) 94 Room Air 11/27/16 01:01 132/75 (94) 11/27/16 00:15 Room Air 11/26/16 23:03 36.9 82 16 165/77 (106) 95 Room Air 11/26/16 15:50 95 Room Air 11/26/16 14:50 36.4 82 16 178/91 (120) 95 Room Air Physical Exam General Appearance: WD/WN, no apparent distress Eyes: sclerae normal ENT: hearing grossly normal Neck: supple, no JVD, trachea midline Respiratory/Chest: lungs clear, normal breath sounds, no respiratory distress, no accessory muscle use Cardiovascular: regular rate, rhythm, no gallop, no murmur Abdomen: + pertinent finding (dressing applied over surgical site) Neurologic/Psychiatric: alert, + pertinent finding (drowsy post-anesthesia) Skin: normal color, warm/dry Laboratory Results Last 24 Hours Test 11/26/16 14:35 11/27/16 05:29 Lactic Acid Level 1.4 mmol/L White Blood Count 7.00 K/uL Red Blood Count 4.47 M/uL Hemoglobin 12.8 g/dL Hematocrit 37.7 % Mean Corpuscular Volume 84.3 fL Mean Corpuscular Hemoglobin 28.6 pg Mean Corpuscular Hemoglobin Concent 34.0 g/dl RDW Standard Deviation 44.4 fL RDW Coefficient of Variation 14.3 % Platelet Count 313 K/uL Mean Platelet Volume 9.7 fL Sodium Level 143 mmol/L Potassium Level 3.6 mmol/L Chloride Level 115 mmol/L Carbon Dioxide Level 21 mmol/L Anion Gap 7.0 mmol/L Blood Urea Nitrogen 20 mg/dl Creatinine 0.60 mg/dl Est Creatinine Clear Calc Drug Dose 84.0 ml/min Estimated GFR () 106.3 Estimated GFR (Non- 91.7 BUN/Creatinine Ratio 32.6 Random Glucose 105 mg/dl Calcium Level 8.4 mg/dl Magnesium Level 2.0 mg/dl Assessment and Plan Ms. Paniagua is a 71 y/o female with PMHx of HTN, HLD, Pre-DM, and Diverticulosis who presents to the ED c/o vomiting since Thursday. XR supports SBO. Small Bowel Obstruction: Possible Complete Obstruction S/P Laparoscopy and Lysis of Adhesions on 11/27 - Pain management with Morphine - NGT remains in R nare - output 1900 overnight - Consult Gen Surg - appreciate ongoing evaluation and diet recommendations PVCs: - Patient had non-sustained runs of PVCs with HR in 60s had short and longer runs - asymptomatic - no tachycardia - Transfer to telemetry for rhythm monitoring - await electrolyte panel and troponin - if stable overnight can likely transfer to Med Surg tomorrow Hypokalemia: IMPROVING - Monitor and replete as necessary with IVF Urinary Tract Infection: Pansensitive E. Coli - Ceftriaxone 1 g IV daily can do 5-7 days treatment HTN: - Hold Diltiazem 420 mg daily and Hyzaar 1 tab daily and cover with PRN Hydralazine HLD: - No medications - monitored by PCP Pre-DM: - Monitored by PCP - will monitor only with BMP glucose DVT Prophylaxis: SCDs/Ambulation; will withhold chemical prophylaxis at this time Code Status: FULL RESUSCITATION Disposition: No D/C needs anticipated - await surgical recovery Continued [facility] stay due to: multiple IV medications needed Discharge planning: home
--- NOTE | 2016-11-27 13:31 | Anesthesiology Progress Note ---
Anesthesia Progress Note Date of Service Nov 27, 2016. Progress Notes The patient did well in the OR. In the PACU, she was noted to have multiple PVCs although she would revert to NSR. Her vitals have been stable throughout. The patient has some incision site pain but otherwise no complaints of chest pain or SOB. Prior to today, she had been hypokalemic. Jane Vivar from medicine came to evaluate the patient. She ordered electrolytes and a troponin which are pending. An EKG was performed that showed normal sinus rhythm. The patient will go to telemetry where the medicine team will be following her.
[2016-11-27 13:50] LABS: BLOOD UREA NITROGEN 20 mg/dl (7-18); CALCIUM 8.7 mg/dl (8.5-10.1); CARBON DIOXIDE 21 mmol/L (21-32); CHLORIDE 114 mmol/L (98-107); CREATININE 0.61 mg/dl (0.60-1.20); GLUCOSE 113 mg/dl (70-99); MAGNESIUM 1.9 mg/dl (1.8-2.4); POTASSIUM 3.8 mmol/L (3.5-5.1); SODIUM 142 mmol/L (136-145)
--- NOTE | 2016-11-27 14:11 | Anesthesiology Progress Note ---
Anesthesia Post Op Note Date & Time Nov 27, 2016 at 14:11 Vital Signs Pain Intensity: 4 Vital Signs Past 12 Hours Date Time Temp Pulse Resp B/P (MAP) Pulse Ox O2 Delivery O2 Flow Rate FiO2 11/27/16 13:55 36.5 66 18 162/75 (104) 93 Nasal Cannula 2.0 11/27/16 13:25 36.2 60 15 161/74 93 Nasal Cannula 4 11/27/16 13:15 60 16 159/86 92 Nasal Cannula 4 11/27/16 13:05 60 16 156/77 94 Oxymask 5 11/27/16 12:55 60 16 160/76 94 Oxymask 5 11/27/16 12:45 63 16 152/77 94 Oxymask 10 11/27/16 12:35 67 16 152/77 95 Oxymask 10 11/27/16 12:25 67 16 155/76 94 Oxymask 15 11/27/16 12:15 67 16 129/85 94 Oxymask 15 11/27/16 12:09 37.1 71 16 142/72 93 Oxymask 15 11/27/16 10:18 36.6 88 18 154/83 (106) 97 Room Air 11/27/16 07:30 Room Air 11/27/16 07:29 36.9 84 20 167/83 (111) 94 Room Air Notes Mental Status: alert / awake / arousable, participated in evaluation Pt Amnestic to Procedure: Yes Nausea / Vomiting: adequately controlled Pain: adequately controlled Airway Patency, RR, SpO2: stable & adequate BP & HR: stable & adequate, see Notes Hydration State: stable & adequate Anesthetic Complications: no major complications apparent The patient did well in the OR. In the PACU, she was noted to have multiple PVCs although she would revert to NSR. Her vitals have been stable throughout. The patient has some incision site pain but otherwise no complaints of chest pain or SOB. Prior to today, she had been hypokalemic. Jane Vivar from medicine came to evaluate the patient. She ordered electrolytes and a troponin which are pending. An EKG was performed that showed normal sinus rhythm. The patient will go to telemetry where the medicine team will be following her.
[2016-11-27] MEDS: MoRPHine SULFATE 4 MG/ML 1 ML CARP\\VIAL IV PRN ×3 (15:07→18:45)
[2016-11-27] MEDS: ACETAMINOPHEN IV 1,000 MG in EMPTY BAG 0 ML IV SCH (16:25)
[2016-11-27] MEDS: CEFTRIAXONE SOD INJ 1 GM in DEXTROSE 5% ADD-VANTAGE 50ML 50 ML IV SCH (16:26)
[2016-11-28] VITALS (8 sets, daily range): BP systolic 132–176; BP diastolic 74–97; PULSE 67–95; TEMP 36.5–37.2; O2SAT 93–95
[2016-11-28] MEDS: ACETAMINOPHEN IV 1,000 MG in EMPTY BAG 0 ML IV SCH ×2 (00:37→08:09)
[2016-11-28] MEDS: RANITIDINE IV 50 MG in DEXTROSE 5% 100ML 100 ML IV SCH ×3 (00:45→18:08)
[2016-11-28] MEDS: NSS + 20MEQ KCL 1000ML 1,000 ML IV SCH ×4 (06:29→21:05)
[2016-11-28 06:55] LABS: HEMATOCRIT 38.1 % (37-47); MEAN CELL VOLUME 85.2 fL (80-100); MEAN CORPUSCULAR HEMOGLOBIN 28.6 pg (25-34); MEAN CORPUSCULAR HGB CONC 33.6 g/dl (32-36); PLATELET COUNT 319 K/uL (130-400); RED BLOOD COUNT 4.47 M/uL (4.2-5.4); WHITE BLOOD COUNT 10.03 K/uL (4.8-10.8)
[2016-11-28 07:19] LABS: BUN/CREATININE RATIO 26.5 (10-20); CALCIUM 8.4 mg/dl (8.5-10.1); CREATININE 0.68 mg/dl (0.60-1.20); MAGNESIUM 1.9 mg/dl (1.8-2.4)
--- NOTE | 2016-11-28 07:59 | Anesthesiology Progress Note ---
Anesthesia Post Op Note Date & Time Nov 28, 2016 at 07:58 Vital Signs Pain Intensity: 4.0 Vital Signs Past 12 Hours Date Time Temp Pulse Resp B/P (MAP) Pulse Ox O2 Delivery O2 Flow Rate FiO2 11/28/16 04:00 36.6 67 18 132/84 (100) 95 Room Air 11/28/16 00:00 36.5 84 18 138/80 (99) 95 Room Air Notes Mental Status: alert / awake / arousable, participated in evaluation Pt Amnestic to Procedure: Yes Nausea / Vomiting: adequately controlled Pain: adequately controlled Airway Patency, RR, SpO2: stable & adequate BP & HR: stable & adequate Hydration State: stable & adequate Anesthetic Complications: no major complications apparent
--- NOTE | 2016-11-28 08:14 | Surgery Progress Note ---
Surgery Progress Note Date of Service Nov 28, 2016. Subjective Post OP Day: 1 + feeling well, + pain controlled Objective Vital Signs: Date Time Temp Pulse Resp B/P (MAP) Pulse Ox O2 Delivery O2 Flow Rate FiO2 11/28/16 08:00 37.0 82 16 155/74 (101) 93 Room Air 11/28/16 04:00 36.6 67 18 132/84 (100) 95 Room Air 11/28/16 00:00 36.5 84 18 138/80 (99) 95 Room Air 11/27/16 19:28 36.8 75 20 152/82 (105) 96 Room Air 11/27/16 16:44 96 11/27/16 16:21 36.4 75 16 139/79 (99) 96 11/27/16 15:36 96 Nasal Cannula 2.0 11/27/16 15:32 36.3 78 16 148/85 (106) 96 Room Air 11/27/16 14:34 36.4 71 14 153/83 (106) 94 11/27/16 13:55 36.5 66 18 162/75 (104) 93 Nasal Cannula 2.0 11/27/16 13:25 36.2 60 15 161/74 93 Nasal Cannula 4 11/27/16 13:15 60 16 159/86 92 Nasal Cannula 4 11/27/16 13:05 60 16 156/77 94 Oxymask 5 11/27/16 12:55 60 16 160/76 94 Oxymask 5 11/27/16 12:45 63 16 152/77 94 Oxymask 10 11/27/16 12:35 67 16 152/77 95 Oxymask 10 11/27/16 12:25 67 16 155/76 94 Oxymask 15 11/27/16 12:15 67 16 129/85 94 Oxymask 15 11/27/16 12:09 37.1 71 16 142/72 93 Oxymask 15 11/27/16 10:18 36.6 88 18 154/83 (106) 97 Room Air Physical Exam: nasogastric drainage (200), urine output (350) Abdomen: soft, + distended (slighlty) Incision(s): clean, dry Laboratory Results: Results Past 24 Hours Test 11/27/16 13:09 11/28/16 06:24 Range/Units Sodium Level 142 144 136-145 mmol/L Potassium Level 3.8 4.0 3.5-5.1 mmol/L Chloride Level 114 115 98-107 mmol/L Carbon Dioxide Level 21 21 21-32 mmol/L Anion Gap 7.0 8.0 3-11 mmol/L Blood Urea Nitrogen 20 18 7-18 mg/dl Creatinine 0.61 0.68 0.60-1.20 mg/dl Est Creatinine Clear Calc Drug Dose 82.6 76.7 ml/min Estimated GFR () 105.7 102.0 Estimated GFR (Non- 91.2 88.0 BUN/Creatinine Ratio 32.0 26.5 10-20 Random Glucose 113 96 70-99 mg/dl Calcium Level 8.7 8.4 8.5-10.1 mg/dl Magnesium Level 1.9 1.9 1.8-2.4 mg/dl Troponin I < 0.015 0-0.045 ng/ml White Blood Count 10.03 4.8-10.8 K/uL Red Blood Count 4.47 4.2-5.4 M/uL Hemoglobin 12.8 12.0-16.0 g/dL Hematocrit 38.1 37-47 % Mean Corpuscular Volume 85.2 80-100 fL Mean Corpuscular Hemoglobin 28.6 25-34 pg Mean Corpuscular Hemoglobin Concent 33.6 32-36 g/dl RDW Standard Deviation 45.8 36.4-46.3 fL RDW Coefficient of Variation 14.6 11.5-14.5 % Platelet Count 319 130-400 K/uL Mean Platelet Volume 10.0 7.4-10.4 fL Assessment & Plan s/p ex lap, lysis of adhesive band no arrhythmia overnight distention improved, NG output decreasing, will d/c NG seen with Dr. Ludwig
--- NOTE | 2016-11-28 12:04 | Hospitalist Progress Note ---
Hospitalist Progress Note Date of Service Nov 28, 2016. Subjective Pt evaluation today including: conversation w/ patient, conversation w/ family , physical exam, chart review, lab review, review of studies, review of inpatient medication list Patient seen and evaluated. No acute events overnight. NGT removed this AM. Tolerated sips of water. Feeling much improved and pain is adequately controlled. Verbalizes no other complaints at this time. Incision is well-approximated and kacy intact. + flatus but no BM yet. Constitutional: No fever, No chills Respiratory: No shortness of breath Cardiovascular: No chest pain, No palpitations Abdomen: No pain, No nausea, No vomiting, No diarrhea, No constipation Musculoskeletal: No swelling, No calf pain Female : No dysuria Heme: No abnormal bleeding/bruising Medications Current Inpatient Medications Medications (Trade) Dose Ordered Sig/Yovani Route Start Time Stop Time Status Last Admin Dose Admin Al Hydrox/Mg Hydrox/Simethicone (Maalox Max Susp) 15 ml Q4H PRN PO 11/25/16 10:30 12/25/16 10:29 Magnesium Hydroxide (Milk Of Magnesia Susp) 30 ml Q6H PRN PO 11/25/16 10:30 12/25/16 10:29 Polyethylene (Miralax Powder Packet) 17 gm DAILY PRN PO 11/25/16 11:15 12/25/16 11:14 Ondansetron HCl (Zofran Inj) 4 mg Q6H PRN IV 11/25/16 10:30 12/25/16 10:29 11/26/16 12:34 4 MG Potassium Chloride/Sodium Chloride 1,000 ml @ 150 mls/hr Q6H40M IV 11/25/16 13:00 12/25/16 12:59 11/28/16 06:29 150 MLS/HR Hydralazine HCl (HydrALAZINE INJ) 10 mg Q6H PRN IV. 11/25/16 10:30 12/25/16 10:29 11/27/16 08:09 10 MG Ceftriaxone Sodium 1 gm/ Dextrose 50 ml @ 100 mls/hr Q24H IV 11/25/16 16:00 11/30/16 15:59 11/27/16 16:26 100 MLS/HR Ranitidine HCl 50 mg/Dextrose 102 ml @ 200 mls/hr Q8H IV 11/26/16 09:00 12/26/16 08:59 11/28/16 08:11 200 MLS/HR Ioversol (Optiray 320) 100 ml UD PRN IV 11/26/16 13:30 11/30/16 13:29 Lorazepam 0.5 mg/ Syringe 1 ml @ 0.5 mls/min Q4H PRN IV 11/26/16 14:30 12/26/16 14:29 11/26/16 16:35 0.5 MLS/MIN Morphine Sulfate (MoRPHine SULFATE INJ) 4 mg Q1H PRN IV 11/27/16 12:00 12/11/16 11:59 11/27/16 18:45 4 MG Objective Vital Signs Date Time Temp Pulse Resp B/P (MAP) Pulse Ox O2 Delivery O2 Flow Rate FiO2 11/28/16 10:30 Room Air 11/28/16 08:00 Room Air 11/28/16 08:00 37.0 82 16 155/74 (101) 93 Room Air 11/28/16 04:00 36.6 67 18 132/84 (100) 95 Room Air 11/28/16 00:00 36.5 84 18 138/80 (99) 95 Room Air 11/27/16 19:28 36.8 75 20 152/82 (105) 96 Room Air 11/27/16 16:44 96 11/27/16 16:21 36.4 75 16 139/79 (99) 96 11/27/16 15:36 96 Nasal Cannula 2.0 11/27/16 15:32 36.3 78 16 148/85 (106) 96 Room Air 11/27/16 14:34 36.4 71 14 153/83 (106) 94 11/27/16 13:55 36.5 66 18 162/75 (104) 93 Nasal Cannula 2.0 11/27/16 13:25 36.2 60 15 161/74 93 Nasal Cannula 4 11/27/16 13:15 60 16 159/86 92 Nasal Cannula 4 11/27/16 13:05 60 16 156/77 94 Oxymask 5 11/27/16 12:55 60 16 160/76 94 Oxymask 5 11/27/16 12:45 63 16 152/77 94 Oxymask 10 11/27/16 12:35 67 16 152/77 95 Oxymask 10 11/27/16 12:25 67 16 155/76 94 Oxymask 15 11/27/16 12:15 67 16 129/85 94 Oxymask 15 11/27/16 12:09 37.1 71 16 142/72 93 Oxymask 15 Physical Exam General Appearance: WD/WN, no apparent distress Eyes: sclerae normal ENT: hearing grossly normal Neck: supple, no JVD, trachea midline Respiratory/Chest: lungs clear, normal breath sounds, no respiratory distress, no accessory muscle use Cardiovascular: regular rate, rhythm, no gallop, no murmur Abdomen: non tender, soft, + abnormal bowel sounds (hypoactive), + pertinent finding (midline incision with kacy intact; well-approximated; minimal ecchymosis; no drainage or erythema) Extremities: no pedal edema, no calf tenderness Neurologic/Psychiatric: alert, oriented x 3 Skin: normal color, warm/dry Laboratory Results Last 24 Hours Test 11/27/16 13:09 11/28/16 06:24 Sodium Level 142 mmol/L 144 mmol/L Potassium Level 3.8 mmol/L 4.0 mmol/L Chloride Level 114 mmol/L 115 mmol/L Carbon Dioxide Level 21 mmol/L 21 mmol/L Anion Gap 7.0 mmol/L 8.0 mmol/L Blood Urea Nitrogen 20 mg/dl 18 mg/dl Creatinine 0.61 mg/dl 0.68 mg/dl Est Creatinine Clear Calc Drug Dose 82.6 ml/min 76.7 ml/min Estimated GFR () 105.7 102.0 Estimated GFR (Non- 91.2 88.0 BUN/Creatinine Ratio 32.0 26.5 Random Glucose 113 mg/dl 96 mg/dl Calcium Level 8.7 mg/dl 8.4 mg/dl Magnesium Level 1.9 mg/dl 1.9 mg/dl Troponin I < 0.015 ng/ml White Blood Count 10.03 K/uL Red Blood Count 4.47 M/uL Hemoglobin 12.8 g/dL Hematocrit 38.1 % Mean Corpuscular Volume 85.2 fL Mean Corpuscular Hemoglobin 28.6 pg Mean Corpuscular Hemoglobin Concent 33.6 g/dl RDW Standard Deviation 45.8 fL RDW Coefficient of Variation 14.6 % Platelet Count 319 K/uL Mean Platelet Volume 10.0 fL Assessment and Plan Ms. Paniagua is a 71 y/o female with PMHx of HTN, HLD, Pre-DM, and Diverticulosis who presents to the ED c/o vomiting since Thursday. XR supports SBO. High Grade Small Bowel Obstruction S/P Laparoscopy and Lysis of Adhesions on 11/27 - Pain management with Morphine - well controlled at this time - Gen Surg following - appreciate ongoing evaluation and diet recommendations PVCs: RESOLVED - Patient had non-sustained runs of individual PVCs with HR in 60s had short (3- 4 beats) and longer runs (10-12) - asymptomatic - no tachycardia Hypokalemia: RESOLVED - Monitor and replete as necessary with IVF Urinary Tract Infection: Pansensitive E. Coli - Ceftriaxone x 3 day course - asymptomatic, afebrile, without leukocytosis HTN: - Hold Diltiazem 420 mg daily and Hyzaar 1 tab daily and cover with PRN Hydralazine HLD: - No medications - monitored by PCP Pre-DM: - Monitored by PCP - will monitor only with BMP glucose DVT Prophylaxis: SCDs/Ambulation; will withhold chemical prophylaxis at this time Code Status: FULL RESUSCITATION Disposition: Await diet advancement and if tolerated can be D/Cd - anticipate D/ C in 1-2 days Continued [facility] stay due to: other (await diet advancement) Discharge planning: home
[2016-11-28] MEDS: HydrALAZINE HCL 20 MG/ML VIAL IV. PRN (15:38)
[2016-11-29] MEDS: RANITIDINE IV 50 MG in DEXTROSE 5% 100ML 100 ML IV SCH ×3 (00:39→17:47)
[2016-11-29] MEDS: NSS + 20MEQ KCL 1000ML 1,000 ML IV SCH ×2 (03:56→10:58)
[2016-11-29 07:16] VITALS: BP 158/79; PULSE 92; TEMP 36.9; O2SAT 94
[2016-11-29 07:25] LABS: HEMATOCRIT 31.8 % (37-47); MEAN CELL VOLUME 85.3 fL (80-100); MEAN CORPUSCULAR HEMOGLOBIN 29.8 pg (25-34); MEAN CORPUSCULAR HGB CONC 34.9 g/dl (32-36); MEAN PLATELET VOLUME 9.5 fL (7.4-10.4); PLATELET COUNT 232 K/uL (130-400); RED BLOOD COUNT 3.73 M/uL (4.2-5.4); WHITE BLOOD COUNT 8.38 K/uL (4.8-10.8)
[2016-11-29 08:09] LABS: BUN/CREATININE RATIO 24.6 (10-20); CALCIUM 8.2 mg/dl (8.5-10.1); CREATININE 0.48 mg/dl (0.60-1.20); POTASSIUM 3.7 mmol/L (3.5-5.1)
--- NOTE | 2016-11-29 08:26 | Surgery Progress Note ---
Surgery Progress Note Date of Service Nov 29, 2016. Subjective Post OP Day: 2 (MALIA) + feeling well, + bowel movement (Liquid), + pain controlled, No nausea Objective Vital Signs: Date Time Temp Pulse Resp B/P (MAP) Pulse Ox O2 Delivery O2 Flow Rate FiO2 11/29/16 07:16 36.9 92 20 158/79 (105) 94 Room Air 11/29/16 00:45 Room Air 11/28/16 22:50 37.2 93 17 153/79 (103) 93 Room Air 11/28/16 19:26 37.1 95 20 153/77 (102) 95 Room Air 11/28/16 18:12 160/81 (107) 11/28/16 15:30 Room Air 11/28/16 15:28 36.9 80 18 167/97 (120) 94 Room Air 11/28/16 10:30 36.5 85 16 176/83 (114) 94 Room Air 11/28/16 10:30 Room Air General Appearance: WD/WN, no apparent distress Respiratory/Chest: normal breath sounds, no respiratory distress Cardiovascular: regular rate, rhythm Abdomen: normal bowel sounds, non distended, soft, + tenderness (mild around incision) Incision(s): clean, dry, intact Laboratory Results: Results Past 24 Hours Test 11/29/16 07:07 Range/Units White Blood Count 8.38 4.8-10.8 K/uL Red Blood Count 3.73 4.2-5.4 M/uL Hemoglobin 11.1 12.0-16.0 g/dL Hematocrit 31.8 37-47 % Mean Corpuscular Volume 85.3 80-100 fL Mean Corpuscular Hemoglobin 29.8 25-34 pg Mean Corpuscular Hemoglobin Concent 34.9 32-36 g/dl RDW Standard Deviation 44.9 36.4-46.3 fL RDW Coefficient of Variation 14.3 11.5-14.5 % Platelet Count 232 130-400 K/uL Mean Platelet Volume 9.5 7.4-10.4 fL Sodium Level 141 136-145 mmol/L Potassium Level 3.7 3.5-5.1 mmol/L Chloride Level 113 98-107 mmol/L Carbon Dioxide Level 19 21-32 mmol/L Anion Gap 9.0 3-11 mmol/L Blood Urea Nitrogen 12 7-18 mg/dl Creatinine 0.48 0.60-1.20 mg/dl Est Creatinine Clear Calc Drug Dose 108.7 ml/min Estimated GFR () 114.4 Estimated GFR (Non- 98.7 BUN/Creatinine Ratio 24.6 10-20 Random Glucose 69 70-99 mg/dl Calcium Level 8.2 8.5-10.1 mg/dl Assessment & Plan 71 yr old woman s/p MALIA - POD#2. Doing well. Will start clear liquids today.
--- NOTE | 2016-11-29 14:22 | Progress Note ---
Subjective Date of Service: Nov 29, 2016. Subjective Pt evaluation today including: conversation w/ patient, conversation w/ family , physical exam, lab review, conversation w/ data migration consultant, review of inpatient medication list Pain: no pain PO Intake: clears Voiding: no voiding problems patient tolerating clears she is alarmed because she had two loose stools concerned because he had C diff infection in past year, asked if we could rule that out has some swelling in left hand from previous IV infiltration reviewed surgery note Review of Systems Abdomen: + diarrhea All Other Systems: Reviewed and Negative Medications Current Inpatient Medications Medications (Trade) Dose Ordered Sig/Yovani Route Start Time Stop Time Status Last Admin Dose Admin Al Hydrox/Mg Hydrox/Simethicone (Maalox Max Susp) 15 ml Q4H PRN PO 11/25/16 10:30 12/25/16 10:29 Magnesium Hydroxide (Milk Of Magnesia Susp) 30 ml Q6H PRN PO 11/25/16 10:30 12/25/16 10:29 Polyethylene (Miralax Powder Packet) 17 gm DAILY PRN PO 11/25/16 11:15 12/25/16 11:14 Ondansetron HCl (Zofran Inj) 4 mg Q6H PRN IV 11/25/16 10:30 12/25/16 10:29 11/26/16 12:34 4 MG Hydralazine HCl (HydrALAZINE INJ) 10 mg Q6H PRN IV. 11/25/16 10:30 12/25/16 10:29 11/28/16 15:38 10 MG Ranitidine HCl 50 mg/Dextrose 102 ml @ 200 mls/hr Q8H IV 11/26/16 09:00 12/26/16 08:59 11/29/16 09:59 200 MLS/HR Ioversol (Optiray 320) 100 ml UD PRN IV 11/26/16 13:30 11/30/16 13:29 Lorazepam 0.5 mg/ Syringe 1 ml @ 0.5 mls/min Q4H PRN IV 11/26/16 14:30 12/26/16 14:29 11/26/16 16:35 0.5 MLS/MIN Morphine Sulfate (MoRPHine SULFATE INJ) 4 mg Q1H PRN IV 11/27/16 12:00 12/11/16 11:59 11/27/16 18:45 4 MG Objective Vital Signs Date Time Temp Pulse Resp B/P (MAP) Pulse Ox O2 Delivery O2 Flow Rate FiO2 11/29/16 07:16 36.9 92 20 158/79 (105) 94 Room Air 11/29/16 07:15 Room Air 11/29/16 00:45 Room Air 11/28/16 22:50 37.2 93 17 153/79 (103) 93 Room Air 11/28/16 19:26 37.1 95 20 153/77 (102) 95 Room Air 11/28/16 18:12 160/81 (107) 11/28/16 15:30 Room Air 11/28/16 15:28 36.9 80 18 167/97 (120) 94 Room Air Physical Exam General Appearance: WD/WN, no apparent distress Eyes: normal inspection, EOMI, sclerae normal ENT: normal ENT inspection, hearing grossly normal, pharynx normal Neck: supple, no adenopathy, no JVD, trachea midline Respiratory/Chest: chest non-tender, lungs clear, normal breath sounds, no respiratory distress, no accessory muscle use Cardiovascular: regular rate, rhythm, no edema, no gallop, no JVD, no murmur Abdomen: normal bowel sounds, soft, no organomegaly, + tenderness (minimal tenderness at incision sites) Extremities: normal range of motion, non-tender, normal inspection, no pedal edema, no calf tenderness, pelvis stable 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, no motor/sensory deficits, alert, normal mood/affect, oriented x 3 Skin: normal color, warm/dry, no rash Laboratory Results Last 24 Hours Test 11/29/16 07:07 White Blood Count 8.38 K/uL Red Blood Count 3.73 M/uL Hemoglobin 11.1 g/dL Hematocrit 31.8 % Mean Corpuscular Volume 85.3 fL Mean Corpuscular Hemoglobin 29.8 pg Mean Corpuscular Hemoglobin Concent 34.9 g/dl RDW Standard Deviation 44.9 fL RDW Coefficient of Variation 14.3 % Platelet Count 232 K/uL Mean Platelet Volume 9.5 fL Sodium Level 141 mmol/L Potassium Level 3.7 mmol/L Chloride Level 113 mmol/L Carbon Dioxide Level 19 mmol/L Anion Gap 9.0 mmol/L Blood Urea Nitrogen 12 mg/dl Creatinine 0.48 mg/dl Est Creatinine Clear Calc Drug Dose 108.7 ml/min Estimated GFR () 114.4 Estimated GFR (Non- 98.7 BUN/Creatinine Ratio 24.6 Random Glucose 69 mg/dl Calcium Level 8.2 mg/dl Assessment and Plan Ms. Paniagua is a 71 y/o female with PMHx of HTN, HLD, Pre-DM, and Diverticulosis who presents to the ED c/o vomiting since Thursday. XR supports SBO. High Grade Small Bowel Obstruction S/P Laparoscopy and Lysis of Adhesions on 11/27 - no pain today - diet advanced to clears by surgery - two loose stools today, will check C diff due to 's recent infection and her exposure PVCs: RESOLVED - Patient had non-sustained runs of individual PVCs with HR in 60s had short (3- 4 beats) and longer runs (10-12) - asymptomatic - no tachycardia Hypokalemia: RESOLVED - Monitor and replete as necessary with IVF Urinary Tract Infection: Pansensitive E. Coli - Ceftriaxone x 3 day course - asymptomatic, afebrile, without leukocytosis HTN: - Hold Diltiazem 420 mg daily and Hyzaar 1 tab daily and cover with PRN Hydralazine - BP in the 150's systolic, will continue to hold until taking more substantial PO HLD: - No medications - monitored by PCP Pre-DM: - Monitored by PCP - will monitor only with BMP glucose DVT Prophylaxis: SCDs/Ambulation; will withhold chemical prophylaxis at this time Code Status: FULL RESUSCITATION Continued [facility] stay due to: other (await diet advancement) Discharge planning: home
[2016-11-29 15:42] VITALS: BP 177/84; PULSE 87; TEMP 37.1; O2SAT 95
[2016-11-29 16:30] VITALS: O2SAT 95
[2016-11-29] MEDS: HydrALAZINE HCL 20 MG/ML VIAL IV. PRN (21:05)
[2016-11-29 21:32] VITALS: BP 162/80
[2016-11-29 23:08] VITALS: BP 168/84; PULSE 95; TEMP 36.8; O2SAT 93
[2016-11-30] MEDS: RANITIDINE IV 50 MG in DEXTROSE 5% 100ML 100 ML IV SCH ×3 (01:32→16:37)
[2016-11-30 03:44] VITALS: BP_SYST 166; BP_SYST 175; BP_DIAS 79; BP_DIAS 96
[2016-11-30] MEDS: HydrALAZINE HCL 20 MG/ML VIAL IV. PRN ×2 (03:49→15:45)
[2016-11-30 06:11] VITALS: BP 156/84
[2016-11-30 06:48] VITALS: BP 158/86; PULSE 86; TEMP 36.7; O2SAT 95
--- NOTE | 2016-11-30 09:46 | Surgery Progress Note ---
Surgery Progress Note Date of Service Nov 30, 2016. Subjective Post OP Day: 3 + feeling well, + ambulating, + bowel movement (multiple loose), + pain controlled, + diet (tolerated clears), No nausea, No vomiting Objective Vital Signs: Date Time Temp Pulse Resp B/P (MAP) Pulse Ox O2 Delivery O2 Flow Rate FiO2 11/30/16 08:10 Room Air 11/30/16 06:48 36.7 86 19 158/86 (110) 95 Room Air 11/30/16 06:11 156/84 (108) 11/30/16 03:44 166/79 (108) 175/96 (122) 11/30/16 00:30 Room Air 11/29/16 23:08 36.8 95 18 168/84 (112) 93 Room Air 11/29/16 21:32 162/80 (107) 11/29/16 16:30 95 Room Air 11/29/16 15:42 37.1 87 18 177/84 (115) 95 Room Air General Appearance: WD/WN, no apparent distress Head: normocephalic, atraumatic Respiratory/Chest: normal breath sounds, no respiratory distress Cardiovascular: regular rate, rhythm Abdomen: normal bowel sounds, non tender, non distended, soft Incision(s): clean, dry, intact Laboratory Results: Microbiology Results 11/29/16 C.difficile Toxin B Gene (PCR) - Final, Complete No C. difficile toxin B gene detected Assessment & Plan 71 yr old woman s/p MALIA - POD#3. Doing well. Will advance to full liquids today. Continue to ambulate.
--- NOTE | 2016-11-30 13:26 | Progress Note ---
Subjective Date of Service: Nov 30, 2016. Subjective Pt evaluation today including: conversation w/ patient, conversation w/ family , physical exam, conversation w/ eap consultant, review of inpatient medication list Pain: no pain PO Intake: tolerating full liquids Voiding: no voiding problems patient continues to do well still moving bowels, loose but less frequent c diff negative, informed patient appreciate note from surgery Review of Systems Abdomen: + diarrhea All Other Systems: Reviewed and Negative Medications Current Inpatient Medications Medications (Trade) Dose Ordered Sig/Yovani Route Start Time Stop Time Status Last Admin Dose Admin Al Hydrox/Mg Hydrox/Simethicone (Maalox Max Susp) 15 ml Q4H PRN PO 11/25/16 10:30 12/25/16 10:29 Magnesium Hydroxide (Milk Of Magnesia Susp) 30 ml Q6H PRN PO 11/25/16 10:30 12/25/16 10:29 Polyethylene (Miralax Powder Packet) 17 gm DAILY PRN PO 11/25/16 11:15 12/25/16 11:14 Ondansetron HCl (Zofran Inj) 4 mg Q6H PRN IV 11/25/16 10:30 12/25/16 10:29 11/26/16 12:34 4 MG Hydralazine HCl (HydrALAZINE INJ) 10 mg Q6H PRN IV. 11/25/16 10:30 12/25/16 10:29 11/30/16 03:49 10 MG Ranitidine HCl 50 mg/Dextrose 102 ml @ 200 mls/hr Q8H IV 11/26/16 09:00 12/26/16 08:59 11/30/16 01:32 200 MLS/HR Ioversol (Optiray 320) 100 ml UD PRN IV 11/26/16 13:30 11/30/16 13:29 Lorazepam 0.5 mg/ Syringe 1 ml @ 0.5 mls/min Q4H PRN IV 11/26/16 14:30 12/26/16 14:29 11/26/16 16:35 0.5 MLS/MIN Morphine Sulfate (MoRPHine SULFATE INJ) 4 mg Q1H PRN IV 11/27/16 12:00 12/11/16 11:59 11/27/16 18:45 4 MG Objective Vital Signs Date Time Temp Pulse Resp B/P (MAP) Pulse Ox O2 Delivery O2 Flow Rate FiO2 11/30/16 08:10 Room Air 11/30/16 06:48 36.7 86 19 158/86 (110) 95 Room Air 11/30/16 06:11 156/84 (108) 11/30/16 03:44 166/79 (108) 175/96 (122) 11/30/16 00:30 Room Air 11/29/16 23:08 36.8 95 18 168/84 (112) 93 Room Air 11/29/16 21:32 162/80 (107) 11/29/16 16:30 95 Room Air 11/29/16 15:42 37.1 87 18 177/84 (115) 95 Room Air Physical Exam General Appearance: WD/WN, no apparent distress Eyes: normal inspection, EOMI, sclerae normal ENT: normal ENT inspection, hearing grossly normal, pharynx normal Neck: supple, no adenopathy, no JVD, trachea midline Respiratory/Chest: chest non-tender, lungs clear, normal breath sounds, no respiratory distress, no accessory muscle use Cardiovascular: regular rate, rhythm, no edema, no gallop, no JVD, no murmur Abdomen: normal bowel sounds, non tender, soft, no organomegaly Extremities: normal range of motion, non-tender, normal inspection, no pedal edema, no calf tenderness, pelvis stable 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 Paniagua is a 71 y/o female with PMHx of HTN, HLD, Pre-DM, and Diverticulosis who presents to the ED c/o vomiting since Thursday. XR supports SBO. High Grade Small Bowel Obstruction S/P Laparoscopy and Lysis of Adhesions on 11/27 - continues to have no pain - diet advanced to full liquids today by surgery - loose stools, C diff negative - likely okay for d/c to home tomorrow, check with surgery in the morning PVCs: RESOLVED - Patient had non-sustained runs of individual PVCs with HR in 60s had short (3- 4 beats) and longer runs (10-12) - asymptomatic - no tachycardia Hypokalemia: RESOLVED - Monitor and replete as necessary with IVF Urinary Tract Infection: Pansensitive E. Coli - Ceftriaxone x 3 day course - asymptomatic, afebrile, without leukocytosis HTN: - resume home meds of Diltiazem and Hyzaar HLD: - No medications - monitored by PCP Pre-DM: - Monitored by PCP - will monitor only with BMP glucose DVT Prophylaxis: SCDs/Ambulation; will withhold chemical prophylaxis at this time Code Status: FULL RESUSCITATION Continued [facility] stay due to: other (await diet advancement) Discharge planning: home
[2016-11-30 15:39] VITALS: BP 166/67; PULSE 89; TEMP 37.1; O2SAT 95
[2016-11-30 16:36] VITALS: BP 158/79
[2016-11-30 22:50] VITALS: BP 174/91; PULSE 90; TEMP 37; O2SAT 94
[2016-12-01 00:58] VITALS: BP 181/98
[2016-12-01] MEDS: HydrALAZINE HCL 20 MG/ML VIAL IV. PRN (01:00)
[2016-12-01] MEDS: RANITIDINE IV 50 MG in DEXTROSE 5% 100ML 100 ML IV SCH ×2 (01:03→08:44)
[2016-12-01 03:56] VITALS: BP 152/71
[2016-12-01 07:09] VITALS: BP 166/93; PULSE 79; TEMP 36.6; O2SAT 94
--- NOTE | 2016-12-01 07:50 | Surgery Progress Note ---
Surgery Progress Note Date of Service Dec 01, 2016. Subjective + bowel movement (multiple), + pain controlled (no analgesics), + diet (full liquids), No complaints, No nausea Objective Vital Signs: Date Time Temp Pulse Resp B/P (MAP) Pulse Ox O2 Delivery O2 Flow Rate FiO2 12/01/16 07:09 36.6 79 16 166/93 (117) 94 Room Air 12/01/16 03:56 152/71 (98) 12/01/16 00:58 181/98 (125) 12/01/16 00:40 Room Air 11/30/16 22:50 37.0 90 16 174/91 (118) 94 Room Air 11/30/16 16:36 158/79 (105) 11/30/16 15:39 37.1 89 18 166/67 (100) 95 Room Air 11/30/16 15:10 Room Air 11/30/16 08:10 Room Air Abdomen: non distended, soft Incision(s): clean, dry, no erythema Assessment & Plan s/p ex lap, lysis of adhesive band regular diet, ok for d/c if tolerates will remove kacy next week seen with Dr. Ludwig
--- NOTE | 2016-12-01 07:52 | Discharge Instructions ---
Discharge Instructions Date of Service Dec 01, 2016. Admission Reason for Admission: Small Bowel Obstruction Discharge Discharge Diagnosis / Problem: lysis of adhesive band Discharge Goals Goal(s): Improve nutritional status Activity Recommendations Activity Limitations: as noted below Lifting Limitations: no more than 10 pounds Shower/Bathe: no limitations (ok to shower) Driving or Machine Use: resume 3 days after discharge . Instructions / Follow-Up Instructions / Follow-Up Dr. Ludwig in 1 week, call [phone] to schedule, [facility] [address] [place] [address] Current Hospital Diet Patient's current hospital diet: Regular Diet Discharge Diet Recommended Diet: Regular Diet Procedures Procedures Performed: Exploratory Laparotomy, lysis of adhesive band, biopsy of omentum Pending Studies Studies pending at discharge: no Medical Emergencies . Who to Call and When: Medical Emergencies: If at any time you feel your situation is an emergency, please call 911 immediately. . Non-Emergent Contact Non-Emergency issues call your: Surgeon Call Non-Emergent contact if: you have a fever, temperature is above 101.5, your pain is not controlled, wound has increased redness, you have any medication questions . "Provider Documentation" section prepared by Akil Rebolledo. . VTE Core Measure Inpt VTE Proph given/why not?: Lee Ann Kraus, SCD's
[2016-12-01 08:41] VITALS: BP 163/79; PULSE 87
[2016-12-01] MEDS ORDERED: DILTIAZEM HCL (TIAzac) 180 MG CAPCR PO SCH (09:00)
[2016-12-01] MEDS ORDERED: DILTIAZEM HCL 120 MG EXT REL CAP PO SCH (09:00)
[2016-12-01] MEDS ORDERED: LOSARTAN/HCTZ 50-12.5 EA TAB PO SCH (09:00)
--- NOTE | 2016-12-01 11:25 | Discharge Instructions ---
Discharge Instructions Date of Service Dec 01, 2016. Admission Reason for Admission: Small Bowel Obstruction Discharge Discharge Diagnosis / Problem: Small Bowel Obstruction Discharge Goals Goal(s): Decrease discomfort, Improve function, Increase independence Activity Recommendations Activity Limitations: as noted below Lifting Limitations: no more than 10 pounds Exercise/Sports Limitations: until after follow-up appointment Shower/Bathe: no limitations . Instructions / Follow-Up Instructions / Follow-Up High Grade Small Bowel Obstruction S/P Laparoscopy and Lysis of Adhesions on 11/27 - You may eat a regular diet as tolerated. Avoid constipating food. - If you have any pain you may use [id number] Tylenol. Follow dosage instructions on package. - Follow-up with Surgery in one week to have the kacy out Home Medications: - You can continue your home medications as previously prescribed Reasons to Return: - Please return if your incision becomes painful, red, warm, opens up, or has a drainage to it. - Please return if you develop increasing abdominal pain or vomiting Current Hospital Diet Patient's current hospital diet: Regular Diet Discharge Diet Recommended Diet: Regular Diet Procedures Procedures Performed: Exploratory Laparotomy, lysis of adhesive band, biopsy of omentum Pending Studies Studies pending at discharge: no Medical Emergencies . Who to Call and When: Medical Emergencies: If at any time you feel your situation is an emergency, please call 911 immediately. . Non-Emergent Contact Non-Emergency issues call your: Primary Care Provider Call Non-Emergent contact if: you have a fever, your pain is concerning you, you have any medication questions . . "Provider Documentation" section prepared by Jane Vivar. . VTE Core Measure Inpt VTE Proph given/why not?: Lee Ann Kraus, ART's
[2016-12-01 11:52] VITALS: BP 163/79; PULSE 87; TEMP 36.6; O2SAT 94
--- NOTE | 2016-12-01 16:21 | Discharge Summary ---
Discharge Summary Date of Service Dec 01, 2016. (Jane Vivar PA-C) Discharge Summary Admission Date: Nov 25, 2016 at 10:46 Discharge Date: Dec 01, 2016 Discharge Disposition: Home Principal Diagnosis: High Grade SBO S/P Lysis of Adhesions Problems/Secondary Diagnoses: Past Medical/Surgical History 1. HTN 2. HLD 3. Pre-DM 4. Diverticulosis 5. S/P Tonsillectomy/Adenoidectomy Procedures: CT SCAN OF THE ABDOMEN AND PELVIS WITH IV CONTRAST FINDINGS: Lung bases: The heart is normal in size and without pericardial effusion. There are coronary artery calcifications. There is a fat-containing Bochdalek hernia at the right lung base. There is left basilar atelectasis secondary to a large hiatal hernia. Liver: The contrast-enhanced liver is normal in size, contour, and attenuation. There is no intrahepatic biliary ductal dilatation. The hepatic veins and portal veins are patent. A 10 mm cyst is seen in the inferior right lobe. Gallbladder: Unremarkable. Spleen: Normal in size and attenuation. Pancreas: Unremarkable. Adrenal glands: Unremarkable. Kidneys: The contrast enhanced kidneys demonstrate cortical atrophy and are without hydronephrosis. The kidneys enhance symmetrically. A 2.1 cm cyst is present in the left lower pole. Additional subcentimeter cortical hypodensities likely represent cysts but are too small for definitive characterization. Abdominal vasculature: The abdominal aorta is normal in course and caliber noting mild atherosclerotic calcification. Stomach and bowel: There is a moderate to large hiatal hernia. Approximately one third of the stomach is located in the thoracic cavity. The duodenum is normal in configuration. 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 The stomach, duodenum, and proximal small bowel are distended and fluid-filled. Small bowel loops measure up to 4.4 cm. There is a complex transition point identified in the right lower quadrant on axial image #288 involving the distal jejunum/proximal ileum, and the possibility of 2 adjacent transition point is not excluded. The appearance is consistent with a high-grade small bowel obstruction. The distal small bowel and colon are decompressed. There is trace interloop fluid. No focally thick walled bowel loops are identified. No pneumatosis intestinalis or portal venous gas is seen. There is advanced sigmoid diverticulosis without CT evidence of acute diverticulitis. Mild diverticular disease is seen throughout the remainder of the colon. The appendix is well-visualized and normal. Peritoneum: There is trace perisplenic ascites as well as trace fluid in the pelvis. No intraperitoneal free air is seen. Lymphadenopathy: None. Pelvic viscera: The bladder is decompressed and grossly unremarkable. The uterus and adnexa are normal as visualized. Skeletal structures: The skeletal structures are osteopenic. There is mild lumbosacral spondylosis and scoliosis. There is a large disc herniation causing severe central canal stenosis at L4-L5. Sclerotic change is noted in the sacroiliac joints. No lytic or blastic lesions are seen. IMPRESSION: 1. Findings are consistent with a high-grade small bowel obstruction. A complex appearing transition point is identified in the right lower quadrant involving the distal jejunum/proximal ileum, with the possibility of 2 adjacent transition point is not excluded. A closed loop type obstruction is not excluded. Surgical consultation is advised. 2. There is trace interloop fluid and a small volume of abdominopelvic ascites. No intraperitoneal free air is seen. No focally thick walled bowel loops are identified. There is no pneumatosis intestinalis or portal venous gas. 3. Moderate to large hiatal hernia. 4. Advanced sigmoid diverticulosis without CT evidence of acute diverticulitis. 5. There is a large disc herniation at L4-L5 causing severe central canal stenosis. 6. Additional findings as above. ABDOMEN 2 VIEWS FINDINGS: Enteric tube has been placed which terminates just to the right of midline in the upper abdomen, likely in the mid gastric lumen. Multiple dilated loops of small bowel are again seen measuring up to proximally 5.1 cm transversely. There are associated air-fluid levels. The degree of bowel distention has slightly decreased from comparison. There is no pneumoperitoneum on the upright projection. No pneumatosis. Negative for urolithiasis or fracture. There is convex left curvature of the lumbar spine. IMPRESSION: 1. Persistent yet mildly decreased small bowel distention without pneumoperitoneum compatible with ongoing obstruction. 2. Enteric tube terminates in the region of the mid gastric lumen. Consultations: 1. General Surgery (Jane Vivar, PAVerónicaC) Medication Reconciliation Continued Medications: Diltiazem Hcl Ext Rel (Tiazac) 420 Mg Capcr 420 MG PO DAILY, CAP Hctz/Losartan (Hyzaar 25MG/100MG) Tab 1 TAB PO DAILY, TAB Discharge Exam Review of Systems: Constitutional: No fever, No chills ENT: No nasal symptoms, No sore throat Respiratory: No cough, No shortness of breath Cardiovascular: No chest pain Abdomen: No pain, No nausea, No vomiting, No diarrhea, No constipation, No GI bleeding Musculoskeletal: No swelling, No calf pain Genitourinary - Female: No dysuria Hematologic / Lymphatic: No abnormal bleeding/bruising Physical Exam: General Appearance: WD/WN, no apparent distress Eyes: sclerae normal ENT: hearing grossly normal Neck: supple, no JVD, trachea midline Respiratory/Chest: lungs clear, normal breath sounds, no respiratory distress, no accessory muscle use Cardiovascular: regular rate, rhythm, no gallop, no murmur Abdomen / GI: normal bowel sounds, non tender, soft, + pertinent finding ( mid-line surgical incision with staple intact; neg erythema, warmth, discharge) Extremities: no calf tenderness, no pedal edema Neurologic/Psychiatric: alert, oriented x 3 Skin: normal color, warm/dry (Jane Vivar, PA-C) Hospital Course ADMISSION: Ms. Paniagua is a 71 y/o female with PMHx of HTN, HLD, Pre-DM, and Diverticulosis who presents to the ED c/o vomiting since Thursday. Last emesis was this AM but denies N/V on admission. Also reporting a burning sensation from the stomach that extends into the throat. She denies overt abdominal pain. She denies H/O GERD or frequent reflux. She denies ETOH consumption or chronic NSAID use. Last BM was Thursday but reporting it was small and not a normal amount for her but is unable to recall the last normal BM. She denies melena/ hematochezia. She denies passing flatus. In September 2016, she did have one episode of BRBPR and declined colonoscopy at that time when seen by PCP. Last colonoscopy was June [address] Cannon which only confirmed diverticulosis. She did attempt to eat yesterday but only had a small piece of toast and a small amount of scrambled eggs. Currently reports have no appetite for food. She has no H/O abdominal surgeries or C-sections. In the ED, she is afebrile. Presence of leukocytosis at 15.81. Abd XR with multiple distended loops of small bowel consistent with SBO. Minimal to no gas is visualized in the cecum/rectum with is concerning for complete obstruction. She is not anemic on labs with H&H 16/43.2. She is hypokalemic at 3.0. She will be admitted to Med/Surg for SBO. HOSPITAL COURSE: Ms. Paniagua was admitted for high grade SBO S/P laparoscopy with lysis of adhesions on 11/[address] Ludwig. She was initially placed NPO with NGT placement with minimal improvement in symptoms. After surgical intervention, patient has passed flatus and had bowel movements. She is reporting no pain and tolerating a regular diet. After surgery, patient was noted to have runs of grouped PVCs (4 beats with one 12 beats) with HR in the 60s but was asymptomatic. Likely this was secondary to anesthesia. She was monitored with no arrhythmia appreciated. Incidentally she was found to have a pansensitive E. coli UTI but was asymptomatic. In setting of surgery she was treated with Ceftriaxone x 3 days. Patient is pain free, tolerating diet, afebrile, and without leukocytosis. She will follow-up with surgery in 1 week for staple removal. Total Time Spent: Greater than 30 minutes This includes examination of the patient, discharge planning, medication reconciliation, and communication with other providers. (Jane Vivar PA-C) Discharge Instructions Please refer to the electronic Patient Visit Report (Discharge Instructions) for additional information. (Jane Vivar PA-C) Additional Copies To Carrie Pandya MD Reviewed: Pt Seen/Exam by Me (Johanne Perez, ) History Pt is doing well. Has minor soreness related to incision site, but no other abd pain. Tolerating PO without issue. Agree with HPI/ROS as noted. (Johanne Perez, ) General Appearance: WD/WN, no apparent distress Respiratory: normal breath sounds, no respiratory distress Cardiovascular: normal peripheral pulses, regular rate, rhythm Gastrointestinal: soft, tenderness (mild) Extremities: non-tender, no pedal edema Neurologic/Psychiatric: alert, normal mood/affect, oriented x 3 Skin Characteristics: normal color, warm/dry (Johanne Perez, ) Assessment/Plan Agree with plan as outlined above s/p OR for SBO Doing well F/U with gen surg for staple d/c UTI on admission, rivas-sensitive (Johanne Perez, )
== END 2016-12-01 13:14 | disposition home or self-care (01) | DRG 336 ==
LOC: C.EDB 07:39 → C.MSW 10:46 → ENRESERV 11:03 → C.2T 11-27 13:46 → ENRESERV 11-28 10:01 → C.MSW 11-28 10:41
PROVIDERS: ADMIT Internal Medicine; ATTEND Family Medicine
PROC: 0DBS0ZX (ICD-10-PCS; principal; 2016-11-27 11:00)
PROC: 0DN80ZZ Release Small Intestine, Open Approach (ICD-10-PCS; principal; 2016-11-27 11:00)
DX: K56.5 Intestinal adhesions [bands] with obstruction (postinfection) (principal); N39.0 Urinary tract infection, site not specified; I97.89 Other postprocedural complications and disorders of the circulatory system, not elsewhere classified; I49.3 Ventricular premature depolarization; T88.59XA Other complications of anesthesia, initial encounter; T41.205A Adverse effect of unspecified general anesthetics, initial encounter; Y92.239 Unspecified place in hospital as the place of occurrence of the external cause; B96.20 Unspecified Escherichia coli [E. coli] as the cause of diseases classified elsewhere; E87.6 Hypokalemia; I10 Essential (primary) hypertension; R73.03 Prediabetes; K57.90 Diverticulosis of intestine, part unspecified, without perforation or abscess without bleeding; Z79.899 Other long term (current) drug therapy

== ENCOUNTER → 2017-01-07 | Outpatient (CLI) | payer OTHER ==
[2017-01-07 12:19] LABS: ESTIMATED AVERAGE GLUCOSE 126 mg/dl; HA1C FLAG Normal (Normal)
== END | disposition home or self-care (01) ==
LOC: C.LABBC 08:03
PROVIDERS: ATTEND Family Medicine
DX: R73.03 Prediabetes (principal)

== ENCOUNTER → 2017-06-01 | Outpatient (CLI) | payer OTHER ==
[2017-06-01 11:13] LABS: BLOOD UREA NITROGEN 16 mg/dl (7-18); CALCIUM 9.4 mg/dl (8.5-10.1); CARBON DIOXIDE 29 mmol/L (21-32); CREATININE 0.81 mg/dl (0.60-1.20); GLUCOSE 104 mg/dl (70-99); POTASSIUM 3.5 mmol/L (3.5-5.1); SODIUM 140 mmol/L (136-145)
== END | disposition home or self-care (01) ==
LOC: C.LABBC 08:30
PROVIDERS: ATTEND Family Medicine
DX: I10 Essential (primary) hypertension (principal); R73.03 Prediabetes

== ENCOUNTER → 2017-08-04 | Outpatient (CLI) | payer OTHER ==
--- NOTE | 2017-08-05 15:23 | MAMMOGRAPHY REPORT ---
BILATERAL DIGITAL SCREENING MAMMOGRAM TOMOSYNTHESIS WITH CAD: 08/04/2017 CLINICAL HISTORY: Routine screening. Patient has no complaints. TECHNIQUE: Breast tomosynthesis in addition to standard 2D mammography was performed. Current study was also evaluated with a Computer Aided Detection (CAD) system. COMPARISON: Comparison is made to exams dated: 11/23/2015 mammogram, 11/20/2014 mammogram, 11/18/2013 ma mmogram, 11/09/2012 mammogram, 09/25/2011 mammogram, and 09/24/2010 mammogram - [facility] er. BREAST COMPOSITION: There are scattered areas of fibroglandular density in both breasts. FINDINGS: There is a stable benign circumscribed oval 7 mm mass in the anterior right breast on the M LO view. Scattered benign rim calcifications and round microcalcifications bilaterally. Mild vascul ar calcification in the breasts. No new suspicious mass, architectural distortion or cluster of micr ocalcifications is seen. IMPRESSION: ACR BI-RADS CATEGORY 1: NEGATIVE There is no mammographic evidence of malignancy. A 1 year screening mammogram is recommended. The pa tient will receive written notification of the results. Approximately 10% of breast cancers are not detected with mammography. A negative mammographic report should not delay biopsy if a clinically suggestive mass is present. Karolyn Barnes M.D. ay/:08/04/2017 15:58:07 Rn Midwife: Megan BERMUDEZR, M, [facility] letter sent: Normal 1/2 BI-RADS Code: ACR BI-RADS Category 1: Negative
== END | disposition home or self-care (01) ==
LOC: C.MAMM 10:22
PROVIDERS: ATTEND Family Medicine
DX: Z12.31 Encounter for screening mammogram for malignant neoplasm of breast (principal)